=== PATIENT | female | born 1995 | race Caucasian/White ===

== ENCOUNTER 2017-03-20 06:26 | Day surgery (SDC) | payer BC ==
[2017-03-18 15:57] VITALS: BMI 46.9
[~2017-03-20 06:26] MED LIST: DEXAMETHASONE SOD PHOSPHATE 10 MG/ML 1 ML VIAL IV ONE; DEXAMETHASONE SOD PHOSPHATE 4 MG/ML 1 ML VIAL IV ONE; FAMOTIDINE 20 MG/2 ML VIAL IV ONE; HYDROmorphone 0.5 MG/0.5 ML SYRINGE IVP PRN; LACTATED RINGERS 1,000 ML IV SCH; LIDOCAINE 1% 20 ML VIAL (10MG/ML) FOR IV START INTRADERMA PRN; MIDAZOLAM 2 MG/2 ML VIAL IV PRN; ONDANSETRON 4 MG/2 ML VIAL IVP ONE; Pre Op ABX Message 1 EACH MISC MISCELLANE ONE; SCOPOLAMINE 1.5MG/72HR PATCH TRANSDERM ONE
[2017-03-20 06:58] VITALS: TEMP 97
[2017-03-20] MEDS ORDERED: PROPOFOL 10 MG/ML 20 ML VIAL IV ONE (07:24)
[2017-03-20] MEDS ORDERED: MIDAZOLAM 2 MG/2 ML VIAL ONE (07:24)
[2017-03-20] MEDS ORDERED: fentaNYL (PF) 50 MCG/ML 2 ML AMP ONE (07:24)
[2017-03-20] MEDS ORDERED: DEXAMETHASONE SOD PHOS (MDV) 100 MG/10 ML VIAL ONE (07:24)
[2017-03-20] MEDS ORDERED: SUCCINYLCHOLINE CHLORIDE 100 MG/5 ML SYR IV ONE (07:24)
--- NOTE | 2017-03-20 08:28 | P.OP ---
Date of Procedure: 03/20/17 Preoperative Diagnosis: Chronic tonsillitis Postoperative Diagnosis: Same Procedure(s) Performed: Adenotonsillectomy Anesthesia: JESSICA Surgeon: Sunny Alamo Estimated Blood Loss (ml): 5 Pathology: other (Bilateral tonsils) Condition: stable Disposition: PACU Indications for Procedure: This is a 22-year-old white female whose had difficulties with chronic and recurrent tonsillitis requiring numerous antibiotics. Operative Findings: Tonsils +3 bilaterally, adenoids mildly enlarged Description of Procedure: The patient in the operative suite and placed in supine position. Patient underwent induction of general anesthesia with oral endotracheal intubation without difficulty. The patient was prepped and draped in usual aseptic fashion. The McIvor mouth gag was placed. The soft palate was palpated and no submucous cleft was noted. A nonlatex catheter was placed through the right nasal cavity and pulled through the oropharynx for soft palate retraction. Nasopharynx examined mirror exam the adenoids were removed with suction cautery/ ablated. Good hemostasis was noted and the catheter was removed. Left tonsil was grasped with a curved Allis clamp and dissected from the tonsillar fossa in a superior to inferior direction using both blunt and electrocautery dissection the tonsil was removed. Once tonsils removed hemostasis gained with suction cautery. Once stasis was gained attention was turned to the right where the right tonsil was removed exactly as the left had been. Once this tonsils removed hemostasis was gained with suction cautery and once hemostasis was obtained and remained good in both tonsillar fossa the patient suctioned in oral gastric fashion the McIvor mouth gag was removed. The patient was then allowed to emerge from general anesthesia having tolerated procedure well was extended operating suite and transferred postoperative recovery area in satisfactory condition.
[2017-03-20] MEDS ORDERED: HYDROmorphone 1 MG/ML 1 ML SYRINGE IVP ONE ×2 (08:44→09:00)
[2017-03-20] MEDS ORDERED: PROMETHAZINE INJ 25 MG/ML 1 ML VIAL IVPB ONE (09:38)
[2017-03-20] MEDS ORDERED: HYDROcodone/APAP 5-325MG 1 EACH TAB PO ONE (10:58)
[2017-03-20 13:02] VITALS: BP 112/77; PULSE 89; RESP 18
== END 2017-03-20 13:02 | disposition home or self-care (01) ==
LOC: OR 06:26
PROVIDERS: ATTEND Otolaryngology
DX: J35.01 Chronic tonsillitis (principal); K21.9 Gastro-esophageal reflux disease without esophagitis; F32.9 Major depressive disorder, single episode, unspecified; Z88.0 Allergy status to penicillin; Z88.2 Allergy status to sulfonamides; Z91.040 Latex allergy status; Z88.1 Allergy status to other antibiotic agents; Z91.011 Allergy to milk products; Z91.09 Other allergy status, other than to drugs and biological substances; Z79.3 Long term (current) use of hormonal contraceptives; Z79.899 Other long term (current) drug therapy; Z83.3 Family history of diabetes mellitus; Z82.3 Family history of stroke
CPT/HCPCS: 42821; 81025; 88304; J2250; J1100 ×2; J2550; J2405; J3010; J1170; J0330; J2704

== ENCOUNTER 2018-04-22 11:03 | Day surgery (SDC) | payer BC ==
[2018-04-21 09:55] VITALS: BMI 50.5
--- NOTE | 2018-04-22 09:10 | P.GSHP ---
History of Present Illness H&P Date: 04/22/18 CHIEF COMPLAINT: Cholecystitis HISTORY OF PRESENT ILLNESS: The patient is a 23-year-old female who presents with history of epigastric including right upper quadrant abdominal pain. She underwent diagnostic studies for the gallbladder. Separately her clinical picture was consistent with cholecystitis. Now she presents for surgical intervention. PAST MEDICAL HISTORY: Please see list PAST SURGICAL HISTORY: Please see list MEDICATIONS: Please see list ALLERGIES: Denies. SOCIAL HISTORY: No illicit drug use or recent tobacco use FAMILY HISTORY: Pertinent for gallbladder disease REVIEW OF ORGAN SYSTEMS: CONSTITUTIONAL: No reports of fevers or chills. HEENT: Denies any troubles with the vision or hearing. ENDOCRINE: No reports of hypothyroidism. No diabetes. RESPIRATORY: No recent pneumonias. CARDIOVASCULAR: Denies chest pain or palpitations GI: No blood in stools or constipation. MUSCULOSKELETAL: Has occasional joint pain including back pain. NEURO: No seizure disorders or headaches. No recent stroke. PSYCH: No depression or suicidal ideation. HEMATOLOGIC: No personal or family history of DVTs or pulmonary emboli. PHYSICAL EXAM: VITAL SIGNS: Afebrile vital signs stable GENERAL: Well-developed pleasant in no acute distress. HEENT: No scleral icterus. Extraocular movements grossly intact. Moist buccal mucosa. NECK: Supple without lymphadenopathy. CHEST: Unlabored respirations. Equal bilateral excursions. CARDIOVASCULAR: Regular rate regular rhythm rhythm. Distal 2+ pulses. ABDOMEN: Soft, nondistended. Tender along the epigastrium and right upper quadrant. MUSCULOSKELETAL: No clubbing, cyanosis, or edema. NEURO : No focal or lateralizing signs. Cranial nerves II-12 within normal limits. PSYCH: Alert and oriented to person, place and time. SKIN: Well perfused. Good skin turgor. ASSESSMENT: 1. Epigastric and right upper quadrant abdominal pain 2. Chronic cholecystitis PLAN: 1. Will need a robotic cholecystectomy possible open. Benefits and risks were described. 2. Heparin for DVT prophylaxis 5000 units. 3. Antibiotic prophylaxis. Past Medical History Past Medical History: GERD/Reflux Additional Past Medical History / Comment(s): Arthritis, unsure which type. Frequent strep throat. Maternal family history of Factor 2 Gene Mutation. History of Any Multi-Drug Resistant Organisms: None Reported Past Surgical History: Tonsillectomy Additional Past Surgical History / Comment(s): [place] teeth extracted. Past Anesthesia/Blood Transfusion Reactions: Family History of Problems w/ Anesthesia Additional Past Anesthesia/Blood Transfusion Reaction / Comment(s): Maternal grandmother, Mom PONV. Additional Psychological History / Comment(s): OCD. Smoking Status: Never smoker Past Alcohol Use History: Rare Past Drug Use History: Marijuana Additional Drug Use History / Comment(s): Uses Marijuana 1-2 monthly. Patient aware not to use 24 hrs prior to procedure. - Past Family History Mother Family Medical History: No Reported History Medications and Allergies Home Medications Medication Instructions Recorded Confirmed Type Escitalopram [Lexapro] 10 mg PO HS 04/07/15 04/21/18 History Cetirizine HCl [Zyrtec] 10 mg PO HS 03/18/17 04/21/18 History Control Pill 1 tab PO HS 04/21/18 04/21/18 History Allergies Allergy/AdvReac Type Severity Reaction Status Date / Time clindamycin Allergy Rash/Hives Verified 04/21/18 09:42 latex Allergy Itching, Verified 04/21/18 09:42 rash Penicillins Allergy Rash/Hives Verified 04/21/18 09:42 Sulfa (Sulfonamide Allergy Rash/Hives, Verified 04/21/18 09:42 Antibiotics) swelling
[~2018-04-22 11:03] MED LIST changes: +ACETAMINOPHEN IV (For NPO) 1,000 MG in EMPTY BAG 1 BAG IVPB ONE; -DEXAMETHASONE SOD PHOSPHATE 4 MG/ML 1 ML VIAL IV ONE; -FAMOTIDINE 20 MG/2 ML VIAL IV ONE; +HEPARIN SODIUM,PORCINE 5,000 UNIT/ML 1 ML VIAL SQ ONE; -HYDROmorphone 0.5 MG/0.5 ML SYRINGE IVP PRN; +INDOCYANINE GREEN 25 MG VIAL IV STA; +MIDAZOLAM (PF) 2 MG/2 ML VIAL IV PRN; -MIDAZOLAM 2 MG/2 ML VIAL IV PRN; -Pre Op ABX Message 1 EACH MISC MISCELLANE ONE
[2018-04-22 12:19] LABS: ALT 24 U/L (9-52); AST 23 U/L (14-36); Albumin 4.1 g/dL (3.5-5.0); Alkaline Phosphatase 62 U/L (38-126); Anion Gap 7 mmol/L; Basophils # (A) 0.1 k/uL (0-0.2); Basophils % (A) 1 %; Blood Urea Nitrogen 12 mg/dL (7-17); Calcium 9.6 mg/dL (8.4-10.2); Carbon Dioxide 27 mmol/L (22-30); Chloride 105 mmol/L (98-107); Eosinophils # (A) 0.3 k/uL (0-0.7); Eosinophils % (A) 4 %; Glucose 88 mg/dL (74-99); HCT 38.2 % (34.0-46.0); HGB 12.5 gm/dL (11.4-16.0); Lymphocytes # (A) 2.5 k/uL (1.0-4.8); Lymphocytes % (A) 32 %; MCH 27.3 pg (25.0-35.0); MCHC 32.7 g/dL (31.0-37.0); MCV 83.6 fL (80.0-100.0); Monocytes # (A) 0.4 k/uL (0-1.0); Monocytes % (A) 5 %; Neutrophils # (A) 4.4 k/uL (1.3-7.7); Neutrophils % (A) 56 %; Platelet Count 241 k/uL (150-450); Potassium 4.5 mmol/L (3.5-5.1); RBC 4.58 m/uL (3.80-5.40); RDW 13.3 % (11.5-15.5); Sodium 139 mmol/L (137-145); Total Bilirubin 0.4 mg/dL (0.2-1.3); Total Protein 6.9 g/dL (6.3-8.2); WBC 7.9 k/uL (3.8-10.6)
[2018-04-22] MEDS ORDERED: NEOSTIGMINE 1 MG/ML 10 ML VIAL ONE (16:27)
[2018-04-22] MEDS ORDERED: MIDAZOLAM 2 MG/2 ML VIAL ONE (16:27)
[2018-04-22] MEDS ORDERED: fentaNYL (PF) 50 MCG/ML 2 ML AMP ONE (16:27)
[2018-04-22] MEDS ORDERED: PROPOFOL 10 MG/ML 20 ML VIAL IV ONE (16:27)
[2018-04-22] MEDS ORDERED: SUCCINYLCHOLINE CHLORIDE 100 MG/5 ML SYR IV ONE (16:27)
[2018-04-22] MEDS ORDERED: GLYCOPYRROLATE 0.2 MG/ML 2 ML VIAL ONE (16:27)
[2018-04-22] MEDS ORDERED: ROCURONIUM BROMIDE 10 MG/ML 10 ML VIAL IV ONE (16:27)
[2018-04-22] MEDS ORDERED: ACETAMINOPHEN IV (For NPO) 1,000 MG/100 ML VIAL ONE (16:27)
[2018-04-22] MEDS ORDERED: HYDROmorphone (PF) 1 MG/ML ONE (16:27)
[2018-04-22] MEDS ORDERED: LIDOCAINE 1% INJ 10MG/ML (20 ML MDV) ONE (16:27)
[2018-04-22] MEDS ORDERED: BUPIVACAIN-EPI 0.25%-1:200,000 30 ML VIAL SQ ONE (16:55)
[2018-04-22] MEDS ORDERED: LACTATED RINGERS 1,000 ML IV ONE (17:41)
[2018-04-22 18:10] VITALS: TEMP 99.1
[2018-04-22] MEDS: HYDROmorphone 0.5 MG/0.5 ML SYRINGE IVP PRN ×2 (18:10→18:35)
--- NOTE | 2018-04-22 18:15 | P.OP ---
Date of Procedure: 04/22/18 Description of Procedure: SURGEON: MARIA ISABEL BLANCAS MD PREOPERATIVE DIAGNOSES: 1. Right upper quadrant abdominal pain 2. Chronic cholecystitis 3. Morbid obesity due to excess calories, BMI 50.5 4. Depressive disorder 5. Family history of gallbladder disease POSTOPERATIVE DIAGNOSES: 1. Right upper quadrant abdominal pain 2. Chronic cholecystitis 3. Morbid obesity due to excess calories, BMI 50.5 4. Depressive disorder 5. Family history of gallbladder disease OPERATION: Robotic-assisted da Luis Daniel Xi laparoscopic cholecystectomy, multiport with FIREFLY ESTIMATED BLOOD LOSS: 5 mL. SPECIMENS REMOVED: Gallbladder. COMPLICATIONS: None. OPERATIVE FINDINGS: 1. Chronic cholecystitis with peritoneal adhesion INDICATIONS: The patient is a 23-year-old female who presents with cholelcystitis. Surgical intervention with a laparoscopic cholecystectomy was described at length including injury to the biliary tree, bleeding, infection, need for further surgery. Informed consent was obtained. Robotic assisted laparoscopic approach was described. Benefits and risks of the procedure including but not limited to bleeding, infection, injury to the biliary tree was described. Informed consent was obtained. DESCRIPTION OF PROCEDURE: Patient was brought to the operating room, placed in supine position. After general induction, the abdomen had been prepped and draped in standard sterile fashion. The robotic da Luis Daniel XI system was primed. After a timeout protocol was performed, the patient had been prepped and draped in standard sterile fashion. The patient was injected with indocyanine green. A 5 mm 0 degrees laparoscopic trocar entry was performed along the left upper quadrant. The abdomen insufflated to 15 mmHg pressure which was tolerated well. Diagnostic laparoscopy demonstrated no injury to bowel viscera or mesentery. The liver surface was unremarkable. Next, two 8 mm robotic ports were placed along the right upper abdomen. The camera 8-mm port was maintained along the epigastrium. Another 8 mm port was placed along the left upper abdominal wall after exchanging the 5 mm port. Please note that the ports were placed at least 10 to 15 cm away from the target anatomy of the gallbladder. The robot was docked along the left lateral abdomen. The patient was repositioned in reverse Trendelenburg position. Using a grasper for arm 3, a grasper for arm 4, including hook cautery for arm 1 , the robotic system was docked and primed as described. Instruments were interchanged by the accounts receivable assistant including hook cautery, Bovie cautery and clip appliers. I had sat at the console. The gallbladder fundus was retracted over the dome of the liver. Initial attention was brought to the infundibulum which was gently retracted in the inferior lateral approach. Using a grasper, the cystic duct including the cystic artery was carefully skeletonized. FIREFLY was used to identify the cystic artery and cystic structures. Large PLASTIC clips were used throughout the entire case. Using a clip nutrition educator 2 clips were placed proximally, and 1 clip was placed distally along the cystic duct and then cauterized with the cautery. Again care was taken to avoid any injury to the biliary tree as the common bile duct was clearly visualized during this portion of dissection. Next, the cystic artery was similarly clipped and cauterized. Electro-Bovie cautery was used to remove the gallbladder from the hepatic fossa. Hemostasis was checked and found to be adequate. The robot was undocked. I re-scrubbed into the case. Using a 10 mm Endo Catch bag via the left upper quadrant incision, the specimen was removed from the abdominal cavity. All pneumoperitoneum instruments were evacuated from the abdominal cavity. The incisions were reapproximated using 4-0 Monocryl in an interrupted subcuticular fashion. Fascial defects were less than 8 mm in size. Please note along the trocar sites, local anesthetic was placed as a field block prior to insertion of all instruments. Liquid glue was applied to the skin. At the end of the procedure needle, sponge, and instrument count had been verified correct by the manager surgical. The patient was transferred to postanesthesia care unit in stable condition. Intraoperative films were shared with the patient's family who were very pleased with the level of care. Console time 17 minutes Plan - Discharge Summary New Discharge Prescriptions: New HYDROcodone/APAP 5-325MG [[place] 5-325] 1 tab PO Q6HR PRN 3 Days #12 tab PRN Reason: Pain Ibuprofen [Motrin] 600 mg PO Q8HR PRN #30 tab PRN Reason: Pain No Action Escitalopram [Lexapro] 10 mg PO HS Cetirizine HCl [Zyrtec] 10 mg PO HS Control Pill 1 tab PO HS Discharge Medication List Escitalopram [Lexapro] 10 mg PO HS 04/07/15 [History] Cetirizine HCl [Zyrtec] 10 mg PO HS 03/18/17 [History] Control Pill 1 tab PO HS 04/21/18 [History] HYDROcodone/APAP 5-325MG [[place] 5-325] 1 tab PO Q6HR PRN 3 Days #12 tab [Rx] Ibuprofen [Motrin] 600 mg PO Q8HR PRN #30 tab 04/22/18 [Rx] Follow up Appointment(s)/Referral(s): Maria Isabel Blancas MD [STAFF PHYSICIAN] - 05/05/18 5:00 pm (Please call to confirm time) Patient Instructions/Handouts: *Surgery [facility] - (Anesthesia) Discharge Instructions Outpatient Surgery, Low Fat Diet (DC), Laparoscopic Cholecystectomy (DC) Activity/Diet/Wound Care/Special Instructions: May shower. No bathtub soaks. Low-fat diet in for 2 days. No lifting over 10 pounds 1 week. Discharge Disposition: HOME SELF-CARE
[2018-04-22 18:17] VITALS: RESP 18
[2018-04-22] MEDS ORDERED: KETOROLAC 30 MG/ML 1 ML VIAL IVP ONE (18:35)
[2018-04-22] MEDS ORDERED: ONDANSETRON 4 MG/2 ML VIAL IVP ONE (19:00)
[2018-04-22 19:11] VITALS: BP 147/78; PULSE 78
== END 2018-04-22 19:59 | disposition home or self-care (01) ==
LOC: OR 11:03
PROVIDERS: ATTEND Surgery Plastic and Reconstructive Surgery
DX: K81.1 Chronic cholecystitis (principal); K21.9 Gastro-esophageal reflux disease without esophagitis; M19.90 Unspecified osteoarthritis, unspecified site; F32.9 Major depressive disorder, single episode, unspecified; E66.01 Morbid (severe) obesity due to excess calories; Z68.43 Body mass index [BMI] 50.0-59.9, adult; Z83.79 Family history of other diseases of the digestive system; Z83.2 Family history of diseases of the blood and blood-forming organs and certain disorders involving the immune mechanism; Z79.3 Long term (current) use of hormonal contraceptives; Z79.899 Other long term (current) drug therapy; Z88.0 Allergy status to penicillin; Z88.2 Allergy status to sulfonamides; Z88.1 Allergy status to other antibiotic agents; Z91.040 Latex allergy status
CPT/HCPCS: 47563; S2900; 80053; 81025; 85025; 88304

== ENCOUNTER → 2019-08-22 | Outpatient (CLI) | payer BC | END | disposition home or self-care (01) | LOC: LABWHC1 11:36 | PROVIDERS: ATTEND Surgery Plastic and Reconstructive Surgery | DX: Z11.59 Encounter for screening for other viral diseases (principal) | CPT/HCPCS: 87635 ==

== ENCOUNTER 2019-08-25 10:05 | Day surgery (SDC) | payer BC ==
[2019-08-23 12:31] VITALS: BMI 54.0
--- NOTE | 2019-08-24 19:41 | P.GSHP ---
History of Present Illness H&P Date: 08/25/19 CHIEF COMPLAINT: Hematochezia HISTORY OF PRESENT ILLNESS: The patient is a 24-year-old female who presents with hematochezia. Lower endoscopy was offered for further evaluation and management. PAST MEDICAL HISTORY: Please see list. PAST SURGICAL HISTORY: Please see list. MEDICATIONS: Please see list. ALLERGIES: Please see list. SOCIAL HISTORY: No illicit drug use FAMILY HISTORY: No reports of Crohn disease or ulcerative colitis. REVIEW OF ORGAN SYSTEMS: CONSTITUTIONAL: No reports of fevers or chills. PHYSICAL EXAM: VITAL SIGNS: Stable GENERAL: Well-developed pleasant in no acute distress. HEENT: No scleral icterus. Extraocular movements grossly intact. Moist buccal mucosa. NECK: Supple without lymphadenopathy. CHEST: Unlabored respirations. Equal bilateral excursions. CARDIOVASCULAR: Regular rate and rhythm. Distal 2+ pulses. ABDOMEN: Soft, nontender, nondistended. MUSCULOSKELETAL: No clubbing, cyanosis, or edema. ASSESSMENT: 1. Hematochezia PLAN: 1. Recommend proceeding with a lower endoscopy Past Medical History Past Medical History: GERD/Reflux Additional Past Medical History / Comment(s): Arthritis, unsure which type. Frequent strep throat. Maternal family history of Factor 2 Gene Mutation. IBS ISSUES History of Any Multi-Drug Resistant Organisms: None Reported Past Surgical History: Cholecystectomy, Tonsillectomy Additional Past Surgical History / Comment(s): [place] teeth extracted. Past Anesthesia/Blood Transfusion Reactions: Family History of Problems w/ Anesthesia Additional Past Anesthesia/Blood Transfusion Reaction / Comment(s): Maternal grandmother, Mom PONV. Smoking Status: Never smoker - Past Family History Mother Family Medical History: No Reported History Medications and Allergies Home Medications Medication Instructions Recorded Confirmed Type Escitalopram [Lexapro] 10 mg PO HS 04/07/15 08/23/19 History Cetirizine HCl [Zyrtec] 10 mg PO HS 03/18/17 08/23/19 History Eluxadoline [Viberzi] 200 mg PO HS 08/23/19 08/23/19 History Norethindrone-E.estradiol-Iron 1 each PO HS 08/23/19 08/23/19 History [Junel Fe 1 mg-20 Mcg Tablet] Allergies Allergy/AdvReac Type Severity Reaction Status Date / Time clindamycin Allergy Rash/Hives Verified 08/23/19 12:09 latex Allergy Itching, Verified 08/23/19 12:09 rash Penicillins Allergy Rash/Hives Verified 08/23/19 12:09 Sulfa (Sulfonamide Allergy Rash/Hives, Verified 08/23/19 12:09 Antibiotics) swelling
[~2019-08-25 10:05] MED LIST changes: -ACETAMINOPHEN IV (For NPO) 1,000 MG in EMPTY BAG 1 BAG IVPB ONE; -DEXAMETHASONE SOD PHOSPHATE 10 MG/ML 1 ML VIAL IV ONE; -HEPARIN SODIUM,PORCINE 5,000 UNIT/ML 1 ML VIAL SQ ONE; -INDOCYANINE GREEN 25 MG VIAL IV STA; -LIDOCAINE 1% 20 ML VIAL (10MG/ML) FOR IV START INTRADERMA PRN; -MIDAZOLAM (PF) 2 MG/2 ML VIAL IV PRN; -ONDANSETRON 4 MG/2 ML VIAL IVP ONE; -SCOPOLAMINE 1.5MG/72HR PATCH TRANSDERM ONE
[2019-08-25 10:28] VITALS: RESP 18; TEMP 97.8
[2019-08-25] MEDS ORDERED: LACTATED RINGERS 1,000 ML IV ONE (10:29)
[2019-08-25] MEDS ORDERED: LIDOCAINE 1% (10MG/ML) FOR IV START INTRADERMA ONE (10:33)
[2019-08-25] MEDS ORDERED: fentaNYL (PF) 50 MCG/ML 2 ML AMP ONE (11:28)
[2019-08-25] MEDS ORDERED: PROPOFOL 10 MG/ML 20 ML VIAL IV ONE (11:28)
[2019-08-25] MEDS ORDERED: MIDAZOLAM 2 MG/2 ML VIAL ONE (11:28)
--- NOTE | 2019-08-25 11:52 | P.HPADDEND ---
H&P Addendum H&P Addendum Date: 08/25/19 Patient reports change in bowel habits including bloody stools long-standing. We'll proceed with colonoscopy
--- NOTE | 2019-08-25 11:53 | P.PCN ---
Date of Procedure: 08/25/19 Description of Procedure: PREOPERATIVE DIAGNOSIS: Change in bowel habits Hematochezia POSTOPERATIVE DIAGNOSIS: Change in bowel habits Hematochezia OPERATION: Colonoscopy to the ileocecal valve and appendiceal orifice. SURGEON: Maria Isabel Blancas MD. ANESTHESIA: MAC. INDICATIONS: The patient is a 24-year-old female who presents with change in bowel habits and hematochezia. Benefits and risks were described and informed consent was obtained. DESCRIPTION OF PROCEDURE: The patient had undergone Suprep. He had been brought into the operating room and laid in the left lateral decubitus position. After adequate intravenous sedation, the rectum was examined with 2% lidocaine jelly. No external hemor rhoids were encountered. The rectal tone was within normal limits. No lesions were palpated in the rectal vault. An Olympus colonoscope was advanced until the ileocecal valve and appendiceal orifice were clearly viewed. The prep was excellent with clear visualization of the mucosal folds. The scope was removed with visualization of each mucosal fold. No scattered diverticulosis was encountered. No colonic polyps were found. No evidence of focal colitis was found. Retroflexion of the scope demonstrated grade 1 internal hemorrhoids without active bleeding or inflammation. The colon was desufflated. The patient had tolerated the procedure well. Withdrawal time was over 6 minutes. FINDINGS: Aronchick preparation quality scale 1 (1-5) Internal hemorrhoids, grade 1 No external prolapsed hemorrhoids. No arteriovenous malformations. No adenomatous polyps. No focal colitis. RECOMMENDATIONS: Lower endoscopy as needed Plan - Discharge Summary Discharge Rx Participant: No New Discharge Prescriptions: Continue Escitalopram [Lexapro] 10 mg PO HS Cetirizine HCl [Zyrtec] 10 mg PO HS Norethindrone-E.estradiol-Iron [Junel Fe 1 mg-20 Mcg Tablet] 1 each PO HS Eluxadoline [Viberzi] 200 mg PO HS Discharge Medication List Escitalopram [Lexapro] 10 mg PO HS 04/07/15 [History] Cetirizine HCl [Zyrtec] 10 mg PO HS 03/18/17 [History] Eluxadoline [Viberzi] 200 mg PO HS 08/23/19 [History] Norethindrone-E.estradiol-Iron [Junel Fe 1 mg-20 Mcg Tablet] 1 each PO HS 08/23/19 [History] Follow up Appointment(s)/Referral(s): Maria Isabel Blancas MD [STAFF PHYSICIAN] - 09/20/19 Patient Instructions/Handouts: *Sur[facility] - (Anesthesia) Endoscopy Discharge Instructions, Colonoscopy (DC) Discharge Disposition: HOME SELF-CARE
[2019-08-25 11:57] VITALS: BP 106/70
[2019-08-25 12:07] VITALS: PULSE 80
== END 2019-08-25 12:31 | disposition home or self-care (01) ==
LOC: ORWHC2ENDO 10:05
PROVIDERS: ATTEND Surgery Plastic and Reconstructive Surgery
DX: K64.0 First degree hemorrhoids (principal); K58.9 Irritable bowel syndrome, unspecified; F42.9 Obsessive-compulsive disorder, unspecified; K21.9 Gastro-esophageal reflux disease without esophagitis; E66.01 Morbid (severe) obesity due to excess calories; Z79.3 Long term (current) use of hormonal contraceptives; Z79.899 Other long term (current) drug therapy; Z88.0 Allergy status to penicillin; Z91.040 Latex allergy status; Z88.2 Allergy status to sulfonamides; Z88.1 Allergy status to other antibiotic agents; Z90.49 Acquired absence of other specified parts of digestive tract; Z91.048 Other nonmedicinal substance allergy status; Z68.43 Body mass index [BMI] 50.0-59.9, adult
CPT/HCPCS: 81025; 45378; J2250; J3010; J2704

== ENCOUNTER 2019-10-05 08:44 | Day surgery (SDC) | payer BC ==
[2019-10-03 15:17] VITALS: BMI 56.7
[2019-10-05 09:09] VITALS: RESP 16; TEMP 97.7
[2019-10-05] MEDS ORDERED: LIDOCAINE 1% (10MG/ML) FOR IV START INTRADERMA ONE (09:14)
[2019-10-05] MEDS ORDERED: PROPOFOL 10 MG/ML 20 ML VIAL IV ONE (09:46)
[2019-10-05] MEDS ORDERED: LIDOCAINE 1% INJ 10MG/ML (20 ML MDV) ONE (09:46)
[2019-10-05 10:09] VITALS: BP 135/71; PULSE 86
--- NOTE | 2019-10-05 10:09 | P.GSHP ---
History of Present Illness H&P Date: 10/05/19 CHIEF COMPLAINT: GERD HISTORY OF PRESENT ILLNESS: The patient is a 24-year-old female who presents reports gastroesophageal reflux disease. Upper endoscopy was offered for further evaluation and management. PAST MEDICAL HISTORY: Please see list. PAST SURGICAL HISTORY: Please see list. MEDICATIONS: Please see list. ALLERGIES: Please see list. SOCIAL HISTORY: No illicit drug use FAMILY HISTORY: No reports of Crohn disease or ulcerative colitis. REVIEW OF ORGAN SYSTEMS: CONSTITUTIONAL: No reports of fevers or chills. GI: Denies any blood in stools or constipation. PHYSICAL EXAM: VITAL SIGNS: Stable GENERAL: Well-developed and pleasant in no acute distress. HEENT: No scleral icterus. Extraocular movements grossly intact. Moist buccal mucosa. NECK: Supple without lymphadenopathy. CHEST: Unlabored respirations. Equal bilateral excursions. CARDIOVASCULAR: Regular rate and rhythm. Distal 2+ pulses. ABDOMEN: Soft, nondistended. MUSCULOSKELETAL: No clubbing, cyanosis, or edema. ASSESSMENT: 1. Gastroesophageal reflux disease PLAN: 1. Recommend proceeding with an upper endoscopy Past Medical History Past Medical History: GERD/Reflux Additional Past Medical History / Comment(s): Arthritis. Maternal family history of Factor 2 Gene Mutation. History of Any Multi-Drug Resistant Organisms: None Reported Past Surgical History: Cholecystectomy, Tonsillectomy Additional Past Surgical History / Comment(s): [place] teeth extracted, colonoscopy Past Anesthesia/Blood Transfusion Reactions: Family History of Problems w/ Anesthesia Additional Past Anesthesia/Blood Transfusion Reaction / Comment(s): Maternal grandmother, Mom PONV. Smoking Status: Never smoker - Past Family History Mother Family Medical History: No Reported History Medications and Allergies Home Medications Medication Instructions Recorded Confirmed Type Escitalopram [Lexapro] 10 mg PO HS 04/07/15 10/05/19 History Cetirizine HCl [Zyrtec] 10 mg PO HS 03/18/17 10/05/19 History Eluxadoline [Viberzi] 200 mg PO HS 08/23/19 10/05/19 History Norethindrone-E.estradiol-Iron 1 each PO HS 08/23/19 10/05/19 History [Junel Fe 1 mg-20 Mcg Tablet] Allergies Allergy/AdvReac Type Severity Reaction Status Date / Time clindamycin Allergy Rash/Hives Verified 10/05/19 09:04 latex Allergy Itching, Verified 10/05/19 09:04 rash Penicillins Allergy Rash/Hives Verified 10/05/19 09:04 Sulfa (Sulfonamide Allergy Rash/Hives, Verified 10/05/19 09:04 Antibiotics) swelling Surgical - Exam Vital Signs Temp Pulse Resp BP Pulse Ox 97.7 F 105 H 16 129/63 97 10/05/19 09:00 10/05/19 09:00 10/05/19 09:00 10/05/19 09:00 10/05/19 09:00
--- NOTE | 2019-10-05 10:10 | P.PCN ---
Date of Procedure: 10/05/19 Description of Procedure: PREOPERATIVE DIAGNOSIS: Gastroesophageal reflux disease. Morbid obesity. POSTOPERATIVE DIAGNOSIS: Morbid obesity. Gastric ulcer Gastroesophageal reflux disease. Diaphragmatic hiatal hernia OPERATION: Esophagogastroduodenoscopy with biopsies along antrum. SURGEON: Maria Isabel Blancas MD ANESTHESIA: MAC. INDICATIONS: The patient is a 24-year-old female who presents with a history of reflux disease. Benefits and risks of the procedure were described. Informed consent was obtained. DESCRIPTION: The patient was brought into the endoscopy suite and laid in the left lateral decubitus position. An Olympus gastroscope was passed along the posterior oropharynx down to the distal esophagus where the squamocolumnar junction was encountered at 40 cm from the incisors. The stomach was entered and no bile reflux was found. Additional findings are listed below. Biopsies with cold forceps were obtained of the antrum. The first through third portion of the duodenum was examined and unremarkable. Retroflexion of the scope confirmed Hill grade 2 lower esophageal valve. The squamocolumnar junction demonstrated LA grade B erosive esophagitis. The stomach was desufflated. The patient tolerated the procedure well. FINDINGS: Squamocolumnar junction 38 cm from the incisors. Diaphragmatic hiatus at 40 cm. Hiatal hernia, 2 cm Hill grade 2 lower esophageal valve. LA grade B erosive esophagitis. No active duodenitis. Small superficial gastric ulcer along antrum, 3 mm RECOMMENDATIONS: Upper endoscopy as needed. Plan - Discharge Summary Discharge Rx Participant: No New Discharge Prescriptions: Continue Escitalopram [Lexapro] 10 mg PO HS Cetirizine HCl [Zyrtec] 10 mg PO HS Norethindrone-E.estradiol-Iron [Junel Fe 1 mg-20 Mcg Tablet] 1 each PO HS Eluxadoline [Viberzi] 200 mg PO HS Discharge Medication List Escitalopram [Lexapro] 10 mg PO HS 04/07/15 [History] Cetirizine HCl [Zyrtec] 10 mg PO HS 03/18/17 [History] Eluxadoline [Viberzi] 200 mg PO HS 08/23/19 [History] Norethindrone-E.estradiol-Iron [Junel Fe 1 mg-20 Mcg Tablet] 1 each PO HS 08/23/19 [History] Follow up Appointment(s)/Referral(s): Maria Isabel Blancas MD [STAFF PHYSICIAN] - 10/18/19 Patient Instructions/Handouts: Peptic Ulcer (DC), Diet for Stomach Ulcers and Gastritis (ED) Discharge Disposition: HOME SELF-CARE
== END 2019-10-05 11:03 | disposition home or self-care (01) ==
LOC: ORWHC2ENDO 08:44
PROVIDERS: ATTEND Surgery Plastic and Reconstructive Surgery
DX: K25.9 Gastric ulcer, unspecified as acute or chronic, without hemorrhage or perforation (principal); K44.9 Diaphragmatic hernia without obstruction or gangrene; K21.0 Gastro-esophageal reflux disease with esophagitis; K22.10 Ulcer of esophagus without bleeding; E66.01 Morbid (severe) obesity due to excess calories; Z79.899 Other long term (current) drug therapy; Z88.0 Allergy status to penicillin; Z88.2 Allergy status to sulfonamides; Z88.1 Allergy status to other antibiotic agents; Z91.040 Latex allergy status; Z91.048 Other nonmedicinal substance allergy status; Z68.43 Body mass index [BMI] 50.0-59.9, adult; M19.90 Unspecified osteoarthritis, unspecified site; Z90.49 Acquired absence of other specified parts of digestive tract; Z90.89 Acquired absence of other organs; Z98.818 Other dental procedure status
CPT/HCPCS: 81025; 88305; 43239; J2001; J2704

== ENCOUNTER → 2019-10-25 | Outpatient (CLI) | payer BC ==
--- NOTE | 2019-10-25 20:19 | CT ---
EXAMINATION TYPE: CT abdomen pelvis wo con DATE OF EXAM: 10/25/2019 COMPARISON: 04/07/2015 HISTORY: Right side flank pain, hematuria CT DLP: 1178 mGycm Automated exposure control for dose reduction was used. TECHNIQUE: Helical acquisition of images was performed from the lung bases through the pelvis. FINDINGS: LUNG BASES: No significant abnormality is appreciated. LIVER/GB: No significant abnormality is appreciated. PANCREAS: No significant abnormality is seen. SPLEEN: No significant abnormality is seen. ADRENALS: No significant abnormality is seen. KIDNEYS: No significant abnormality is seen. URINARY BLADDER: No significant abnormality is seen. ADENOPATHY: None visualized. OSSEOUS STRUCTURES: Mild hypertrophic changes of the spine BOWEL: Bowel gas pattern nonspecific with no obstruction. Appendix normal. OTHER: Fat-containing anterior abdominal wall hernia. There again bilateral ovarian masses which contain fat. The lesion on the left which is the larger of the 2 also contains a calcification. Findings likely related to dermoid or teratoma. Maximal dimensi on of 4.7 cm. Findings also noted on prior exam. IMPRESSION: 1. Stable bilateral ovarian masses likely representing dermoid or teratoma. Correlate clinically if t his is the location pain. 2. No hydronephrosis or nephrolithiasis.
== END | disposition home or self-care (01) ==
LOC: RADCTMAIN 19:11
PROVIDERS: ATTEND Surgery Plastic and Reconstructive Surgery
DX: N83.8 Other noninflammatory disorders of ovary, fallopian tube and broad ligament (principal)
CPT/HCPCS: 74176

== ENCOUNTER → 2019-12-21 | Outpatient (CLI) | payer BC ==
[2019-12-21 16:29] VITALS: BP 137/92; PULSE 102; RESP 18; TEMP 98; BMI 56.0
--- NOTE | 2019-12-21 17:27 | P.HPBAR ---
Bariatric H&P - History & Physicial H&P Date: 12/21/19 History & Physicial: Visit/CC: initial visit Patient initial contact: Initial weight: Initial weight in pounds: Height: 5 ft 5 in Initial BMI: Last weight: Current weight: 152.815 kg Current weight in pounds: 336.90 Current BMI: 56.0 [place] body weight (based on NIH guidelines): 56.699 kg Excess body weight loss: The patient is a 24 year-old F who presents for Bariatric Assessment. Recommend get copies of CT scan and report to terminal clerk. Robotic oopherectomy. DATE OF SERVICE: 12/21/19 REASON FOR CONSULTATION: Initial bariatric evaluation. HISTORY OF PRESENT ILLNESS: Olesya Varela is a 24-year-old female who comes with lifelong morbid obesity. She comes in looking into the sleeve gastrectomy. Her gallbladder is out. She takes Omeprazole as needed for gastroesophageal reflux disease. She has a family with obesity. She does have family support. No reports of active chest pain. No reports of active nausea or vomiting. She has undergone medical supervised weight loss. She has osteoarthritis of the knees, hips, and back. Now she is looking into permanent options for weight loss. She has history of change in bowel habits with colonoscopy completed. At height of 5 feet 5 inches, her ideal body weight is 149 pounds. She comes in 336 pounds. Her body mass index is 56.1. She is 187 pounds overweight. PAST MEDICAL HISTORY: 1. Morbid obesity due to excess calories 2. Body mass index of 56.1 3. Osteoarthritis of the knees. 4. Osteoarthritis of the lower back. 5. Gastroesophageal reflux disease 6. Depressive disorder PAST SURGICAL HISTORY: 1. Cholecystectomy 2. Tonsillectomy 3. Colonoscopy 4. EGD HOME MEDICATIONS: Home Medications Medication Instructions Recorded Confirmed Cetirizine HCl [Zyrtec] 10 mg PO HS 03/18/17 01/25/20 Norethindrone-E.estradiol-Iron 1 each PO HS 08/23/19 01/25/20 [Junel Fe 1 mg-20 Mcg Tablet] FLUoxetine HCL [PROzac] 20 mg PO DAILY 12/21/19 01/25/20 Previous Rx's Medication Instructions Recorded Omeprazole [PriLOSEC] 40 mg PO DAILY #90 cap 07/14/20 ALLERGIES: Allergies Allergy/AdvReac Type Severity Reaction Status Date / Time clindamycin Allergy Rash/Hives Verified 01/25/20 13:35 latex Allergy Itching, Verified 01/25/20 13:35 rash Penicillins Allergy Rash/Hives Verified 01/25/20 13:35 Sulfa (Sulfonamide Allergy Rash/Hives, Verified 01/25/20 13:35 Antibiotics) swelling SOCIAL HISTORY: Marijuana use. FAMILY HISTORY: No family history of ulcerative colitis disease or Crohn's disease. Family history of morbid obesity. History of Factor 2 gene mutation. REVIEW OF ORGAN SYSTEMS: CONSTITUTIONAL: At height of 5 feet 5 inches, her ideal body weight is 149 pounds. She comes in 336 pounds. Her body mass index is 56.1. She is 187 pounds overweight. HEENT: Denies any active troubles hearing. Wears glasses. ENDOCRINE: No diabetes. No hypothyroidism. CARDIOVASCULAR: No past reports of palpitations or heart attacks or chest pain. RESPIRATORY: No daytime somnolence. No asthma. GASTROINTESTINAL: Denies any bright red blood per rectum. Has diarrhea. No constipation. MUSCULOSKELETAL: Has lower back pain and joint pain. Has osteoarthritis of the knees. NEURO: No headaches. No seizure disorders. PSYCH: Has depression. No suicidal ideation. RHEUMATOLOGIC: No lupus. No rheumatoid arthritis. HEMATOLOGIC: Denies any abnormal bleeding or bruising. No personal history of DVTs. SKIN: No rash. No skin cancer. PHYSICAL EXAM: VITAL SIGNS: Height 5 foot 5 inches, weight 336 pounds. BMI 56.1 Vital Signs Temp 98 F 12/21/19 16:21 Pulse 102 H 12/21/19 16:21 Resp 18 12/21/19 16:21 BP 137/92 12/21/19 16:21 Pulse Ox GENERAL: Well-developed in no acute distress. HEENT: No scleral icterus. Extraocular movements grossly intact. Hears conversational speech. No nasal drainage. NECK: Supple without lymphadenopathy. CHEST: Nonlabored respirations with equal bilateral excursions. CARDIOVASCULAR: Tachycardic. Distal 2+ pulses. ABDOMEN: Obese, soft, nontender, nondistended. MUSCULOSKELETAL: No clubbing, cyanosis. NEURO: No focal or lateralizing signs. Cranial nerves 2 through 12 grossly within normal limits. PSYCH: Appropriate affect. Alert and oriented to person, place and time. SKIN: Good skin turgor. Well perfused. STUDIES: CT of the abdomen and pelvis independently reviewed demonstrates small umbilical hernia. Appendix unremarkable. 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 REPORT: CT of the abdomen and pelvis report confirms left ovarian tumor dermoid type, 4.7 cm. EGD FINDINGS: Squamocolumnar junction 38 cm from the incisors. Diaphragmatic hiatus at 40 cm. Hiatal hernia, 2 cm Hill grade 2 lower esophageal valve. LA grade B erosive esophagitis. No active duodenitis. Small superficial gastric ulcer along antrum, 3 mm COLONOSCOPY FINDINGS: Aronchick preparation quality scale 1 (1-5) Internal hemorrhoids, grade 1 No external prolapsed hemorrhoids. No arteriovenous malformations. No adenomatous polyps. No focal colitis. Final Pathologic Diagnosis GASTRIC ANTRAL MUCOSA, BIOPSY: Reactive gastropathy (acute gastritis). No helicobacter type micro organisms identified. ASSESSMENT: 1. Morbid obesity due to excess calories 2. Body mass index of 56.1 3. Osteoarthritis of the knees. 4. Osteoarthritis of the lower back. 5. Gastroesophageal reflux disease 6. Depressive disorder PLAN: 1. Surgical options including a band, gastric bypass, sleeve gastrectomy were described in detail. Alternatives such as gastric balloon including duodenal switch were described. She is looking into the sleeve gastrectomy. 2. The [place] [facility]ariat[facility] surgical collaborative data and outcomes calculator were described with surgical options. 3. Recommend a bariatric metabolic panel to evaluate for micro- including macronutrient deficiencies. 4. Psych assessment per insurance guidelines. 5. Dietary surveillance and counseling was reviewed. Increased protein intake over 65 grams daily advised. 6. Patient would benefit from surgical intervention for correction of her morbid obesity with post-operative compliance. Thank you for this consultation. Past Medical History Past Medical History: GERD/Reflux Additional Past Medical History / Comment(s): Arthritis. Maternal family history of Factor 2 Gene Mutation. History of Any Multi-Drug Resistant Organisms: None Reported Past Surgical History: Cholecystectomy, Tonsillectomy Additional Past Surgical History / Comment(s): [place] teeth extracted, colonoscopy; EGD 2019 Past Anesthesia/Blood Transfusion Reactions: Family History of Problems w/ Anesthesia Additional Past Anesthesia/Blood Transfusion Reaction / Comm: Maternal grandmother, Mom PONV. Past Psychological History: No Psychological Hx Reported Additional Psychological History / Comment(s): OCD. Smoking Status: Never smoker Past Alcohol Use History: Rare Past Drug Use History: Marijuana Additional Drug Use History / Comment(s): Uses Marijuana 1-2 monthly. Patient aware not to use 24 hrs prior to procedure. - Past Family History Mother Family Medical History: No Reported History Surgical - Exam Vital Signs Temp Pulse Resp BP 98 F 102 H 18 137/92 12/21/19 16:21 12/21/19 16:21 12/21/19 16:21 12/21/19 16:21 Bariatric Checklist Checklist: Plan: Checklist: EGD: 1. Hiatal hernia: 2. H. Pylori: HgbA1c: Vitamin D: Smoking: Never smoker Primary care physician referral: Dr. Barba Psychiatry clearance: Cardiology clearance: Sleep study: Diet journal: VTE risk score: VTE risk level: Rehab needs at discharge:
== END | disposition home or self-care (01) ==
LOC: BARWHC3 15:32
PROVIDERS: ATTEND Surgery Plastic and Reconstructive Surgery
DX: E66.01 Morbid (severe) obesity due to excess calories (principal); M17.0 Bilateral primary osteoarthritis of knee; F32.9 Major depressive disorder, single episode, unspecified; K21.9 Gastro-esophageal reflux disease without esophagitis; Z79.891 Long term (current) use of opiate analgesic; Z79.899 Other long term (current) drug therapy; Z88.0 Allergy status to penicillin; Z88.1 Allergy status to other antibiotic agents; Z91.040 Latex allergy status; Z68.43 Body mass index [BMI] 50.0-59.9, adult
CPT/HCPCS: 99211

== ENCOUNTER → 2020-01-25 | Outpatient (CLI) | payer BC ==
--- NOTE | 2020-01-25 13:43 | P.PN ---
Subjective Progress Note Date: 01/25/20 DATE OF SERVICE: 01/25/20 CHIEF COMPLAINT: Morbid obesity HISTORY OF PRESENT ILLNESS: Olesya Varela is a 24-year-old female who comes with lifelong morbid obesity. She comes in looking into the sleeve gastrectomy. Patient also has history of abnormal computed tomography scan for left ovarian mass. She is pending follow-up with the net developer contract. No reports of nausea or vomiting. She presents for options for bariatric procedures. At height of 5 feet 5 inches, her ideal body weight is 149 pounds. She comes in 336 pounds. Unchanged from her previous visit 1 month ago. Her body mass index is 56.1. She is 187 pounds overweight. PAST MEDICAL HISTORY: 1. Morbid obesity due to excess calories 2. Body mass index of 56.1 3. Osteoarthritis of the knees. 4. Osteoarthritis of the lower back. 5. Gastroesophageal reflux disease 6. Depressive disorder PAST SURGICAL HISTORY: 1. Cholecystectomy 2. Tonsillectomy 3. Colonoscopy 4. EGD HOME MEDICATIONS: Home Medications Medication Instructions Recorded Confirmed Cetirizine HCl [Zyrtec] 10 mg PO HS 03/18/17 01/25/20 Norethindrone-E.estradiol-Iron 1 each PO HS 08/23/19 01/25/20 [Junel Fe 1 mg-20 Mcg Tablet] FLUoxetine HCL [PROzac] 20 mg PO DAILY 12/21/19 01/25/20 Previous Rx's Medication Instructions Recorded Omeprazole [PriLOSEC] 40 mg PO DAILY #90 cap 10/18/19 ALLERGIES: Allergies Allergy/AdvReac Type Severity Reaction Status Date / Time clindamycin Allergy Rash/Hives Verified 01/25/20 13:35 latex Allergy Itching, Verified 01/25/20 13:35 rash Penicillins Allergy Rash/Hives Verified 01/25/20 13:35 Sulfa (Sulfonamide Allergy Rash/Hives, Verified 01/25/20 13:35 Antibiotics) swelling SOCIAL HISTORY: Marijuana use. FAMILY HISTORY: No family history of ulcerative colitis disease or Crohn's disease. Family history of morbid obesity. History of Factor 2 gene mutation. REVIEW OF ORGAN SYSTEMS: CONSTITUTIONAL: At height of 5 feet 5 inches, her ideal body weight is 149 pounds. She comes in 336 pounds. Her body mass index is 56.1. She is 187 pounds overweight. HEENT: Denies any active troubles hearing. Wears glasses. ENDOCRINE: No diabetes. No hypothyroidism. CARDIOVASCULAR: No past reports heart attacks or chest pain. RESPIRATORY: No daytime somnolence. No asthma. GASTROINTESTINAL: Denies any bright red blood per rectum. Has diarrhea. No constipation. MUSCULOSKELETAL: Has lower back pain and joint pain. Has osteoarthritis of the knees. NEURO: No headaches. No seizure disorders. PSYCH: Has depression. No suicidal ideation. RHEUMATOLOGIC: No lupus. No rheumatoid arthritis. HEMATOLOGIC: Denies any abnormal bleeding or bruising. No personal history of DVTs. SKIN: No rash. No skin cancer. GENITOURINARY: Has left ovarian mass. PHYSICAL EXAM: VITAL SIGNS: Height 5 foot 5 inches, weight 336 pounds. BMI 56.1 Vital Signs Temp 98.7 F 01/25/20 13:35 Pulse 118 H 01/25/20 13:35 Resp 18 01/25/20 13:35 BP 122/88 01/25/20 13:35 Pulse Ox GENERAL: Well-developed in no acute distress. HEENT: No scleral icterus. Extraocular movements grossly intact. Hears conversational speech. No nasal drainage. NECK: Supple without lymphadenopathy. CHEST: Nonlabored respirations with equal bilateral excursions. CARDIOVASCULAR: Tachycardic. Distal 2+ pulses. ABDOMEN: Obese, soft, nontender, nondistended. MUSCULOSKELETAL: No clubbing, cyanosis. NEURO: No focal or lateralizing signs. Cranial nerves 2 through 12 grossly within normal limits. PSYCH: Appropriate affect. Alert and oriented to person, place and time. SKIN: Good skin turgor. Well perfused. ASSESSMENT: 1. Morbid obesity due to excess calories 2. Body mass index of 56.1 3. Osteoarthritis of the knees. 4. Osteoarthritis of the lower back. 5. Gastroesophageal reflux disease 6. Depressive disorder 7. Left ovarian teratoma 8. Tachycardia PLAN: 1. Bariatric options between a sleeve, band and a Denys-en-Y gastric bypass were reviewed in detail. The patient elected for a sleeve gastrectomy. Robotic assisted approach described. 2. The [place] [facility] Data was also reviewed with benefits and risks as described. 3. An 8 page second-generation bariatric consent form was reviewed in detail including potential of bleeding, infection, leaks, adequate weight loss, nutritional deficiencies which the patient demonstrated understanding of the risks. 4. A 2 week high-protein low caloric 800 kcal diet described to address hepatomegaly. 5. Preoperative labs including complete metabolic panel and CBC with type and screen recommended. 6. DVT prophylaxis per [place] [facility]ariat[facility] surgery collaborative. 7. Antibiotic prophylaxis. 8. Inpatient hospitalization anticipated for more than 2 nights. 9. All questions and concerns were addressed with the patient.1. Went over consent for sleeve gastrectomy and [facility] [place] outcomes calculator was reviewed. 10. Recommend EKG for persistent tachycardia. 11. All questions addressed. 12. Diagrams were reviewed where patient selected sleeve image. 13. Weight loss over 100 pounds described. 14. Risks of gastroesophageal reflux disease described and reviewed including risks of leak and management. 15. Recommend get copies of CT scan and report to [employer] contract for left ovarian mass and possible robotic oopherectomy. 16. Will need correction of macro and micronutrient deficiencies Objective - Vital Signs Vital signs: Intake & Output 01/24/20 01/25/20 01/25/20 18:59 06:59 18:59 Weight 152.861 kg
[2020-01-25 13:46] VITALS: BP 122/88; PULSE 118; RESP 18; TEMP 98.7; BMI 56.0
== END | disposition home or self-care (01) ==
LOC: BARWHC3 09:46
PROVIDERS: ATTEND Surgery Plastic and Reconstructive Surgery
DX: E66.01 Morbid (severe) obesity due to excess calories (principal); Z68.43 Body mass index [BMI] 50.0-59.9, adult; M17.0 Bilateral primary osteoarthritis of knee; M19.09 Primary osteoarthritis, other specified site; K21.9 Gastro-esophageal reflux disease without esophagitis; F32.9 Major depressive disorder, single episode, unspecified; D27.1 Benign neoplasm of left ovary; Z90.49 Acquired absence of other specified parts of digestive tract; Z88.2 Allergy status to sulfonamides; Z88.0 Allergy status to penicillin; Z88.1 Allergy status to other antibiotic agents; F12.90 Cannabis use, unspecified, uncomplicated; Z79.899 Other long term (current) drug therapy; Z79.890 Hormone replacement therapy; R00.0 Tachycardia, unspecified; Z91.040 Latex allergy status
CPT/HCPCS: 93005; 99211

== ENCOUNTER → 2020-04-18 | Outpatient (CLI) | payer BC ==
[2020-04-18 16:40] VITALS: BP 141/96; PULSE 99; RESP 18; TEMP 98; BMI 54.7
--- NOTE | 2020-04-18 16:51 | P.PN ---
Subjective Progress Note Date: 04/18/20 DATE OF SERVICE: 04/18/2020 CHIEF COMPLAINT: Morbid obesity HISTORY OF PRESENT ILLNESS: Olesya Varela is a 24-year-old female who comes with lifelong morbid obesity. She comes in looking into the sleeve gastrectomy. She has completed medical supervised weight loss. She has completed psychological assessment. She denies active severe gastroesophageal reflux disease. She comes in for surgical weight loss. At height of 5 feet 5 inches, her ideal body weight is 149 pounds. She was 336 pounds, BMI 56.1. She comes in 328 pounds from 336 pounds, 3 months ago. She has lost 8 pounds in 3 months. She is 179 pounds overweight. PAST MEDICAL HISTORY: 1. Morbid obesity due to excess calories 2. Body mass index of 56.1 3. Osteoarthritis of the knees. 4. Osteoarthritis of the lower back. 5. Gastroesophageal reflux disease 6. Depressive disorder PAST SURGICAL HISTORY: 1. Cholecystectomy 2. Tonsillectomy 3. Colonoscopy 4. EGD HOME MEDICATIONS: Home Medications Medication Instructions Recorded Confirmed Cetirizine HCl [Zyrtec] 10 mg PO HS 03/18/17 01/25/20 Norethindrone-E.estradiol-Iron 1 each PO HS 08/23/19 01/25/20 [Junel Fe 1 mg-20 Mcg Tablet] FLUoxetine HCL [PROzac] 20 mg PO DAILY 12/21/19 01/25/20 Previous Rx's Medication Instructions Recorded Omeprazole [PriLOSEC] 40 mg PO DAILY #90 cap 10/18/19 ALLERGIES: Allergies Allergy/AdvReac Type Severity Reaction Status Date / Time clindamycin Allergy Rash/Hives Verified 01/25/20 13:35 latex Allergy Itching, Verified 01/25/20 13:35 rash Penicillins Allergy Rash/Hives Verified 01/25/20 13:35 Sulfa (Sulfonamide Allergy Rash/Hives, Verified 01/25/20 13:35 Antibiotics) swelling SOCIAL HISTORY: Marijuana use. FAMILY HISTORY: No family history of ulcerative colitis disease or Crohn's disease. Family history of morbid obesity. History of Factor 2 gene mutation. REVIEW OF ORGAN SYSTEMS: CONSTITUTIONAL: At height of 5 feet 5 inches, her ideal body weight is 149 pounds. She comes in 337 pounds. Her body mass index is 56.1. She is 187 pounds overweight. HEENT: Denies any active troubles hearing. Wears glasses. ENDOCRINE: No diabetes. No hypothyroidism. CARDIOVASCULAR: No past reports heart attacks or chest pain. RESPIRATORY: No daytime somnolence. No asthma. GASTROINTESTINAL: Denies any bright red blood per rectum. Has diarrhea. No constipation. MUSCULOSKELETAL: Has lower back pain and joint pain. Has osteoarthritis of the knees. NEURO: No headaches. No seizure disorders. PSYCH: Has depression. No suicidal ideation. RHEUMATOLOGIC: No lupus. No rheumatoid arthritis. HEMATOLOGIC: Denies any abnormal bleeding or bruising. No personal history of DVTs. SKIN: No rash. No skin cancer. GENITOURINARY: Has left ovarian mass. PHYSICAL EXAM: VITAL SIGNS: Height 5 foot 5 inches, weight 328 pounds. BMI 54.7 Vital Signs Temp 98 F 04/18/20 16:35 Pulse 99 04/18/20 16:35 Resp 18 04/18/20 16:35 BP 141/96 04/18/20 16:35 Pulse Ox GENERAL: Well-developed in no acute distress. HEENT: No scleral icterus. Extraocular movements grossly intact. Hears conversational speech. No nasal drainage. NECK: Supple without lymphadenopathy. CHEST: Nonlabored respirations with equal bilateral excursions. CARDIOVASCULAR: Tachycardic. Distal 2+ pulses. ABDOMEN: Obese, soft, nontender, nondistended. MUSCULOSKELETAL: No clubbing, cyanosis. NEURO: No focal or lateralizing signs. Cranial nerves 2 through 12 grossly within normal limits. PSYCH: Appropriate affect. Alert and oriented to person, place and time. SKIN: Good skin turgor. Well perfused. ASSESSMENT: 1. Morbid obesity due to excess calories 2. Body mass index of 56.1 3. Osteoarthritis of the knees. 4. Osteoarthritis of the lower back. 5. Gastroesophageal reflux disease 6. Depressive disorder 7. Left ovarian teratoma 8. Tachycardia PLAN: 1. Bariatric options between a sleeve, band and a Denys-en-Y gastric bypass were reviewed in detail. The patient elected for a sleeve gastrectomy. Robotic assisted approach described. 2. The [place] [facility] Data was also reviewed with benefits and risks as described. 3. An 8 page second-generation bariatric consent form was reviewed in detail including potential of bleeding, infection, leaks, adequate weight loss, nutritional deficiencies which the patient demonstrated understanding of the risks. 4. A 2 week high-protein low caloric 800 kcal diet described to address hepatomegaly. 5. Preoperative labs including complete metabolic panel and CBC with type and screen recommended. 6. DVT prophylaxis per [place] [facility]ariat[facility] surgery collaborative. 7. Antibiotic prophylaxis. 8. Inpatient hospitalization anticipated for more than 2 nights. 9. All questions and concerns were addressed with the patient. 10. She is at elevated risk for perioperative complications with BMI over 50. Objective - Vital Signs Vital signs: Vital Signs Temp 98 F 04/18/20 16:35 Pulse 99 04/18/20 16:35 Resp 18 04/18/20 16:35 BP 141/96 04/18/20 16:35 Pulse Ox Intake & Output 04/17/20 04/18/20 04/18/20 18:59 06:59 18:59 Weight 149.141 kg
== END | disposition home or self-care (01) ==
LOC: BARWHC3 16:18
PROVIDERS: ATTEND Surgery Plastic and Reconstructive Surgery
DX: E66.01 Morbid (severe) obesity due to excess calories (principal); M17.0 Bilateral primary osteoarthritis of knee; K21.9 Gastro-esophageal reflux disease without esophagitis; F32.9 Major depressive disorder, single episode, unspecified; D27.1 Benign neoplasm of left ovary; M47.817 Spondylosis without myelopathy or radiculopathy, lumbosacral region; R00.0 Tachycardia, unspecified; Z68.43 Body mass index [BMI] 50.0-59.9, adult; Z88.0 Allergy status to penicillin; Z91.041 Radiographic dye allergy status; Z88.2 Allergy status to sulfonamides; Z88.1 Allergy status to other antibiotic agents; Z79.899 Other long term (current) drug therapy; Z90.49 Acquired absence of other specified parts of digestive tract
CPT/HCPCS: 99211

== ENCOUNTER → 2020-04-19 | Outpatient (CLI) | payer BC ==
[2020-04-19 10:21] LABS: Basophils # (A) 0.1 k/uL (0-0.2); Basophils % (A) 1 %; Eosinophils # (A) 0.3 k/uL (0-0.7); Eosinophils % (A) 4 %; HCT 38.1 % (34.0-46.0); HGB 12.7 gm/dL (11.4-16.0); Lymphocytes # (A) 2.6 k/uL (1.0-4.8); Lymphocytes % (A) 30 %; MCH 26.5 pg (25.0-35.0); MCHC 33.3 g/dL (31.0-37.0); MCV 79.8 fL (80.0-100.0); Mean Platelet Volume 7.2; Monocytes # (A) 0.6 k/uL (0-1.0); Monocytes % (A) 7 %; Neutrophils % (A) 58 %; Platelet Count 274 k/uL (150-450); RBC 4.77 m/uL (3.80-5.40); RDW 13.6 % (11.5-15.5); WBC 8.6 k/uL (3.8-10.6)
[2020-04-19 10:30] LABS: ALT 21 U/L (4-34); AST 28 U/L (14-36); African American GFR (CKD) >90 (>60 ml/min/1.73 sqM); Albumin 4.3 g/dL (3.5-5.0); Alkaline Phosphatase 79 U/L (38-126); Anion Gap 6 mmol/L; Blood Urea Nitrogen 12 mg/dL (7-17); Calcium 9.7 mg/dL (8.4-10.2); Carbon Dioxide 27 mmol/L (22-30); Chloride 106 mmol/L (98-107); Glucose 96 mg/dL (74-99); Non-African American GFR(CKD) >90 (>60 ml/min/1.73 sqM); Sodium 139 mmol/L (137-145); Total Bilirubin 0.3 mg/dL (0.2-1.3); Total Protein 7.5 g/dL (6.3-8.2)
== END | disposition home or self-care (01) ==
LOC: LABPAT 09:11
PROVIDERS: ATTEND Surgery Plastic and Reconstructive Surgery
DX: Z01.818 Encounter for other preprocedural examination (principal)
CPT/HCPCS: 80053; 85025

== ENCOUNTER 2020-04-23 07:30 | Inpatient (IN) | payer BC ==
--- NOTE | 2020-04-23 05:06 | P.GSHP ---
History of Present Illness H&P Date: 04/23/20 DATE OF SERVICE: 04/23/20 CHIEF COMPLAINT: Morbid obesity HISTORY OF PRESENT ILLNESS: Olesya Varela is a 25-year-old female who comes with lifelong morbid obesity. She comes in looking into the sleeve gastrectomy. Patient also has history of abnormal computed tomography scan for left ovarian mass. She is pending follow-up with the productivity engineer. No reports of nausea or vomiting. She presents for options for bariatric procedures. At height of 5 feet 5 inches, her ideal body weight is 149 pounds. She comes in 336 pounds. Unchanged from her previous visit 1 month ago. Her body mass index is 56.1. She is 187 pounds overweight. PAST MEDICAL HISTORY: 1. Morbid obesity due to excess calories 2. Body mass index of 56.1 3. Osteoarthritis of the knees. 4. Osteoarthritis of the lower back. 5. Gastroesophageal reflux disease 6. Depressive disorder PAST SURGICAL HISTORY: 1. Cholecystectomy 2. Tonsillectomy 3. Colonoscopy 4. EGD HOME MEDICATIONS: Home Medications Medication Instructions Recorded Confirmed Cetirizine HCl [Zyrtec] 10 mg PO HS 03/18/17 01/25/20 Norethindrone-E.estradiol-Iron 1 each PO HS 08/23/19 01/25/20 [Junel Fe 1 mg-20 Mcg Tablet] FLUoxetine HCL [PROzac] 20 mg PO DAILY 12/21/19 01/25/20 Previous Rx's Medication Instructions Recorded Omeprazole [PriLOSEC] 40 mg PO DAILY #90 cap 10/18/19 ALLERGIES: Allergies Allergy/AdvReac Type Severity Reaction Status Date / Time clindamycin Allergy Rash/Hives Verified 01/25/20 13:35 latex Allergy Itching, Verified 01/25/20 13:35 rash Penicillins Allergy Rash/Hives Verified 01/25/20 13:35 Sulfa (Sulfonamide Allergy Rash/Hives, Verified 01/25/20 13:35 Antibiotics) swelling SOCIAL HISTORY: Marijuana use. FAMILY HISTORY: No family history of ulcerative colitis disease or Crohn's disease. Family history of morbid obesity. History of Factor 2 gene mutation. REVIEW OF ORGAN SYSTEMS: CONSTITUTIONAL: At height of 5 feet 5 inches, her ideal body weight is 149 pounds. She comes in 336 pounds. Her body mass index is 56.1. She is 187 pounds overweight. HEENT: Denies any active troubles hearing. Wears glasses. ENDOCRINE: No diabetes. No hypothyroidism. CARDIOVASCULAR: No past reports heart attacks or chest pain. RESPIRATORY: No daytime somnolence. No asthma. GASTROINTESTINAL: Denies any bright red blood per rectum. Has diarrhea. No constipation. MUSCULOSKELETAL: Has lower back pain and joint pain. Has osteoarthritis of the knees. NEURO: No headaches. No seizure disorders. PSYCH: Has depression. No suicidal ideation. RHEUMATOLOGIC: No lupus. No rheumatoid arthritis. HEMATOLOGIC: Denies any abnormal bleeding or bruising. No personal history of DVTs. SKIN: No rash. No skin cancer. GENITOURINARY: Has left ovarian mass. PHYSICAL EXAM: VITAL SIGNS: Height 5 foot 5 inches, weight 336 pounds. BMI 56.1 GENERAL: Well-developed in no acute distress. HEENT: No scleral icterus. Extraocular movements grossly intact. Hears conversational speech. No nasal drainage. NECK: Supple without lymphadenopathy. CHEST: Nonlabored respirations with equal bilateral excursions. CARDIOVASCULAR: Tachycardic. Distal 2+ pulses. ABDOMEN: Obese, soft, nontender, nondistended. MUSCULOSKELETAL: No clubbing, cyanosis. NEURO: No focal or lateralizing signs. Cranial nerves 2 through 12 grossly within normal limits. PSYCH: Appropriate affect. Alert and oriented to person, place and time. SKIN: Good skin turgor. Well perfused. ASSESSMENT: 1. Morbid obesity due to excess calories 2. Body mass index of 56.1 3. Osteoarthritis of the knees. 4. Osteoarthritis of the lower back. 5. Gastroesophageal reflux disease 6. Depressive disorder 7. Left ovarian teratoma 8. Tachycardia PLAN: 1. Bariatric options between a sleeve, band and a Denys-en-Y gastric bypass were reviewed in detail. The patient elected for a sleeve gastrectomy. Robotic assisted approach described. 2. The [place] [facility] Data was also reviewed with benefits and risks as described. 3. An 8 page second-generation bariatric consent form was reviewed in detail including potential of bleeding, infection, leaks, adequate weight loss, nutritional deficiencies which the patient demonstrated understanding of the risks. 4. A 2 week high-protein low caloric 800 kcal diet described to address hepatomegaly. 5. Preoperative labs including complete metabolic panel and CBC with type and screen recommended. 6. DVT prophylaxis per [place] [facility]. 7. Antibiotic prophylaxis. 8. Inpatient hospitalization anticipated for more than 2 nights. 9. All questions and concerns were addressed with the patient. Past Medical History Past Medical History: GERD/Reflux Additional Past Medical History / Comment(s): Arthritis. Maternal family history of Factor 2 Gene Mutation, environmental allergies History of Any Multi-Drug Resistant Organisms: None Reported Past Surgical History: Cholecystectomy, Tonsillectomy Additional Past Surgical History / Comment(s): [place] teeth extracted, colonoscopy; EGD 2019 Past Anesthesia/Blood Transfusion Reactions: Family History of Problems w/ Anesthesia, Motion Sickness Additional Past Anesthesia/Blood Transfusion Reaction / Comment(s): Maternal grandmother, Mom PONV. Smoking Status: Never smoker - Past Family History Mother Family Medical History: No Reported History Medications and Allergies Home Medications Medication Instructions Recorded Confirmed Type Cetirizine HCl [Zyrtec] 10 mg PO HS 03/18/17 04/18/20 History Norethindrone-E.estradiol-Iron 1 each PO HS 08/23/19 04/18/20 History [Junel Fe 1 mg-20 Mcg Tablet] FLUoxetine HCL [PROzac] 20 mg PO HS 12/21/19 04/18/20 History Omeprazole [PriLOSEC] 40 mg PO HS 04/11/20 04/18/20 History Allergies Allergy/AdvReac Type Severity Reaction Status Date / Time clindamycin Allergy Rash/Hives Verified 04/18/20 16:35 latex Allergy Itching, Verified 04/18/20 16:35 rash Penicillins Allergy Rash/Hives Verified 04/18/20 16:35 Sulfa (Sulfonamide Allergy Rash/Hives, Verified 04/18/20 16:35 Antibiotics) swelling
[~2020-04-23 07:30] MED LIST changes: +DEXAMETHASONE SOD PHOSPHATE 4 MG/ML 1 ML VIAL IV ONE; +HYDROmorphone 0.5 MG/0.5 ML SYRINGE IVP PRN; -LACTATED RINGERS 1,000 ML IV SCH; +LIDOCAINE 1% (10MG/ML) FOR IV START INTRADERMA PRN; +ONDANSETRON 4 MG/2 ML VIAL IVP ONE; +SCOPOLAMINE 1.5MG/72HR PATCH TRANSDERM ONE; +SCOPOLAMINE 1.5MG/72HR PATCH TRANSDERM STA; +ceFAZolin 3 GM in SODIUM CHLORIDE 0.9% 100 ML IVPB PRN
[2020-04-23] MEDS ORDERED: CHLORHEXIDINE GLUCONATE 15 ML CUP MUCOUS MEM ONE (08:40)
[2020-04-23] MEDS: LACTATED RINGERS 1,000 ML IV SCH ×2 (09:01→23:36)
[2020-04-23] MEDS ORDERED: ROCURONIUM 10 MG/ML (10 ML VIAL) IV ONE (09:08)
[2020-04-23] MEDS ORDERED: PROPOFOL 10 MG/ML 20 ML VIAL IV ONE (09:08)
[2020-04-23] MEDS ORDERED: SODIUM CHLORIDE 0.9% 100 ML BAG ONE (09:08)
[2020-04-23] MEDS ORDERED: LIDOCAINE 1% INJ 10MG/ML (20 ML MDV) ONE (09:08)
[2020-04-23] MEDS ORDERED: ceFAZolin 1,000 MG VIAL ONE (09:08)
[2020-04-23] MEDS ORDERED: fentaNYL (PF) 50 MCG/ML 2 ML AMP ONE (09:08)
[2020-04-23] MEDS ORDERED: HYDROmorphone (PF) 1 MG/ML ONE (09:08)
[2020-04-23] MEDS ORDERED: NEOSTIGMINE 1 MG/ML 10 ML VIAL ONE (09:08)
[2020-04-23] MEDS ORDERED: MIDAZOLAM 2 MG/2 ML VIAL ONE (09:08)
[2020-04-23] MEDS ORDERED: SUCCINYLCHOLINE CHLORIDE 100 MG/5 ML SYR IV ONE (09:08)
[2020-04-23] MEDS ORDERED: GLYCOPYRROLATE 0.2 MG/ML 2 ML VIAL ONE (09:08)
[2020-04-23] MEDS ORDERED: LIDOCAINE 1%-EPI 1:100,000 20 ML VIAL SQ ONE ×2 (09:34→09:38)
[2020-04-23] MEDS ORDERED: NALOXONE 0.4 MG/ML 1 ML VIAL IV PRN (10:45)
[2020-04-23] MEDS ORDERED: diphenhydrAMINE 50 MG/ML 1 ML VIAL IVP PRN (10:45)
[2020-04-23] MEDS ORDERED: HYDROmorphone 1 MG/ML 1 ML SYRINGE IVP PRN (10:45)
[2020-04-23] MEDS ORDERED: DEXAMETHASONE SOD PHOSPHATE 10 MG/ML 1 ML VIAL IV PRN (10:48)
[2020-04-23] MEDS ORDERED: diphenhydrAMINE 50 MG/ML 1 ML VIAL IVP ONE (10:50)
--- NOTE | 2020-04-23 10:56 | P.OP ---
Date of Procedure: 04/23/20 Description of Procedure: SURGEON: KAMALJIT WILSON MD PREOPERATIVE DIAGNOSES: 1. Morbid obesity due to excess calories 2. Body mass index of 59.6 3. Osteoarthritis of the knees. 4. Osteoarthritis of the lower back. 5. Gastroesophageal reflux disease 6. Depressive disorder 7. Left ovarian teratoma 8. Tachycardia POSTOPERATIVE DIAGNOSES: 1. Morbid obesity due to excess calories 2. Body mass index of 59.6 3. Osteoarthritis of the knees. 4. Osteoarthritis of the lower back. 5. Gastroesophageal reflux disease 6. Depressive disorder 7. Left ovarian teratoma 8. Tachycardia OPERATION: 1. Robotic assisted daVinci Xi laparoscopic sleeve gastrectomy with 40-Dutch bougie, multiport. 2. Intraoperative esophagogastroduodenoscopy. ANESTHESIA: Gen. local anesthetic ESTIMATED BLOOD LOSS: 5 mL SPECIMENS REMOVED: Sleeve gastrectomy COMPLICATIONS: None. FINDINGS: 1. Negative intraoperative esophagogastrojejunoscopy leak test. 2. No hepatomegaly and no large hiatus hernia. 3. Sleeve gastrectomy, 25 x 5 cm INDICATIONS: Olesya Varela is a 25-year-old female who comes with lifelong morbid obesity. She comes in looking into the sleeve gastrectomy. Patient also has history of abnormal computed tomography scan for left ovarian mass. She is pending follow-up with the industrial technologist. No reports of nausea or vomiting. She presents for options for bariatric procedures. At height of 5 feet 3 inches, her ideal body weight is 149 pounds. Her highest is 336 pounds. She comes in 326 pounds. She has lost 10 pounds. Her BMI initial 59.6. She is 186 pounds overweight. All surgical options for morbid obesity had been described using the [place] [facility] comorbidity resolution including complication risk score. A second-generation bariatric consent form was described in detail including the possibility of protein malnutrition, leaks, gastric stricture, venous thrombosis, gastroesophageal reflux disease, need for further surgery for which she demonstrated understanding. Benefits and risks of the procedure were described at length. Informed consent was obtained. DESCRIPTION: The patient was brought into the operating room theater. Preoperatively she had received Lovenox subcutaneously for DVT prophylaxis. Additionally she had Peridex oral solution as an oral decontaminant. After general induction, the abdomen was prepped and draped in standard sterile fashion. An Ioban draping was placed along the abdomen. A robotic da Luis Daniel Xi system was prepped and primed. At 13 cm from the xiphoid, proposed port sites were marked with indelible marker along the anterior axillary line bilaterally, mid axillary line bilaterally with each ports were marked 10 to 15 cm from each other. The senior court office assistant port was marked along the left lateral abdominal wall. The robotic stapler port was marked for the right midclavicular line. A 5 mm 0 degrees laparoscopic trocar entry was performed along the left upper quadrant. The abdomen was insufflated to 15 mmHg pressure was tolerated well. Diagnostic laparoscopy demonstrated no injury to bowel, viscera, or mesentery. No evidence of large hiatus hernia was identified. The liver edge was sharp consistent with 2 week low-carb high-protein diet. The ports were readjusted at 13 cm from the xiphoid to avoid additional adhesions. A 8 mm port was placed along the left upper abdominal wall after exchanging the 5 mm port. A separate 8 mm port was placed along the left lateral abdominal wall. Please note that the ports were placed at least 20 cm away from the target anatomy. Care was taken to check each robotic arms were safely away from collision with the bed or the patient. At the epigastrium, a medium sized Milagros liver retractor was placed under direct visualization with the Iron Special Technical Operations Officer placed under the right shoulder of the patient. Next, 12-mm robot stapler port was placed along the right upper quadrant. The camera 8-mm port was maintained along the epigastrium. The patient was repositioned in reverse Trendelenburg position at 21-degrees after lowering the bed. The robot was docked along the left side of the patient. Using a grasper for arm 4, a vessel sealer for arm 3, including grasper for arm 1, the robotic system was docked and primed as described. Instruments were interchanged by the senior court office assistant for stapler loads. The camera was placed at 30-degrees down. I had sat at the console. The pylorus was identified and 6 cm proximally along the greater curvature of the stomach, the short gastrics were mobilized upwards to the angle of His using a vessel sealer. Hemostasis was excellent during this portion of the procedure. Next, the upper pole of the stomach was adherent to the left anh, which was gently dissected free using atraumatic grasper. I went to the head of the bed and placed 40-Dutch blunt bougie into the stomach. The bougie was readjusted by the nurse gasoline finisher. Robotic stapler green load 60 mm 1 followed by blue 60 mm x 5 loads were used to create the sleeve. Initial firing was across the antrum of the stomach towards the angle of His. The staple line was linear without corkscrewing. The space from the angularis incisura of the sleeve was approximately 4 cm. I then went to the head of the bed to perform the intraoperative esophagogastroduodenoscopy leak test. The bougie was withdrawn. The upper pole of the stomach was bathed using normal saline solution. The scope was withdrawn with careful inspection along the staple line for which no leaks were found along the entire length. Additionally,the sleeve was completely hemostatic without any encroachment along the angularis incisura. Its topology was a soft "J". No stricture was encountered upon placement of the scope. The GI tract was desufflated. The patient tolerated this portion of the procedure well. The scope was completely withdrawn. The robot was undocked. I then rescrubbed into case, whereby the irrigation fluid was aspirated from the abdominal cavity. Tisseel fibrin sealant was placed along the entire staple length. Once dried the Milagros liver retractor was removed. Attention was now brought to removal of the specimen. The distal end of the sleeve gastrectomy specimen was brought out through the 12 mm port at the left upper quadrant. The specimen was gently removed en total. No contamination had occurred during this process. All instruments and pneumoperitoneum including irrigation fluid was removed from the abdominal cavity. The 12 mm port site was closed using 0-Vicryl and Abdullahi Castro and irrigated with diluted hydrogen peroxide. The final incisions were closed using subcuticular interrupted suture of 4-0 Monocryl. Exofin was applied to the skin once the skin had been cleansed. OptiFoam dressing was placed along the stomach extraction site. The sleeve specimen was measured and checked also for leaks which none were found. At the end of the procedure, needle, sponge, and instrument count was verified correct by the surgical oncologist. The patient was taken to the postanesthesia care unit in stable condition. She had tolerated the procedure well. Intraoperative films and findings were reviewed with the patient's family.
[2020-04-23] MEDS ORDERED: ONDANSETRON 4 MG/2 ML VIAL IVP ONE (11:15)
[2020-04-23] MEDS ORDERED: HYDROmorphone 0.5 MG/0.5 ML SYRINGE IVP ONE (11:30)
[2020-04-23] MEDS: ALBUTEROL NEBULIZED 2.5 MG/3 ML INHALATION SCH ×3 (12:00→19:47)
[2020-04-23] MEDS ORDERED: ACETAMINOPHEN IV (For NPO) 1,000 MG in EMPTY BAG 1 BAG IVPB ONE (12:00)
[2020-04-23] MEDS: DEXAMETHASONE SOD PHOSPHATE 4 MG/ML 1 ML VIAL IV SCH ×3 (12:35→23:31)
[2020-04-23] MEDS: ONDANSETRON 4 MG/2 ML VIAL IVP SCH ×3 (12:39→23:30)
[2020-04-23] MEDS: SIMETHICONE 40 MG/0.6 ML DROPS 2,000 MG/30 ML BOTTLE PO SCH ×3 (12:43→23:31)
[2020-04-23] MEDS: HYOSCYAMINE ORAL DROPS 1.875 MG/15 ML BOTTLE PO SCH ×3 (12:46→23:30)
[2020-04-23] MEDS: KETOROLAC 15 MG/ML 1 ML VIAL IVP SCH ×3 (12:47→23:30)
[2020-04-23] MEDS: 0.9% NACL WITH KCL 20 MEQ/L 1,000 ML IV SCH ×2 (15:28→17:13)
[2020-04-23] MEDS ORDERED: ceFAZolin 3 GM in SODIUM CHLORIDE 0.9% 100 ML IVPB SCH (16:00)
[2020-04-23] MEDS ORDERED: LORATADINE 10 MG TAB PO SCH (21:00)
[2020-04-24] MEDS: 0.9% NACL WITH KCL 20 MEQ/L 1,000 ML IV SCH (05:28)
[2020-04-24] MEDS: SIMETHICONE 40 MG/0.6 ML DROPS 2,000 MG/30 ML BOTTLE PO SCH ×2 (05:31→12:12)
[2020-04-24] MEDS: HYOSCYAMINE ORAL DROPS 1.875 MG/15 ML BOTTLE PO SCH ×2 (05:32→12:11)
[2020-04-24] MEDS: ONDANSETRON 4 MG/2 ML VIAL IVP SCH ×2 (05:33→12:07)
[2020-04-24] MEDS: KETOROLAC 15 MG/ML 1 ML VIAL IVP SCH ×2 (05:33→12:09)
[2020-04-24] MEDS: DEXAMETHASONE SOD PHOSPHATE 4 MG/ML 1 ML VIAL IV SCH ×2 (05:34→12:10)
[2020-04-24 06:54] LABS: Basophils % (A) 0 %; Eosinophils % (A) 0 %; HCT 36.5 % (34.0-46.0); HGB 11.8 gm/dL (11.4-16.0); Lymphocytes % (A) 7 %; MCH 25.8 pg (25.0-35.0); MCHC 32.3 g/dL (31.0-37.0); MCV 79.9 fL (80.0-100.0); Mean Platelet Volume 7.5; Monocytes # (A) 0.4 k/uL (0-1.0); Monocytes % (A) 3 %; Neutrophils # (A) 13.2 k/uL (1.3-7.7); Neutrophils % (A) 90 %; Platelet Count 262 k/uL (150-450); RBC 4.56 m/uL (3.80-5.40); RDW 13.8 % (11.5-15.5); WBC 14.7 k/uL (3.8-10.6)
[2020-04-24] MEDS ORDERED: CHLORHEXIDINE GLUCONATE 15 ML CUP MUCOUS MEM PRN (07:00)
[2020-04-24] MEDS ORDERED: PANTOPRAZOLE 40 MG/10 ML VIAL IVP PRN (07:00)
[2020-04-24] MEDS ORDERED: ENOXAPARIN 40 MG/0.4 ML SYRINGE SQ PRN (07:00)
[2020-04-24 07:26] VITALS: BP 108/71; TEMP 98.6
[2020-04-24] MEDS ORDERED: 0.9% NACL WITH KCL 20 MEQ/L 1,000 ML IV SCH (08:00)
[2020-04-24] MEDS: ALBUTEROL NEBULIZED 2.5 MG/3 ML INHALATION SCH ×3 (08:08→15:27)
[2020-04-24] MEDS ORDERED: PANTOPRAZOLE 40 MG/10 ML VIAL IV SCH (09:00)
[2020-04-24] MEDS ORDERED: ENOXAPARIN 40 MG/0.4 ML SYRINGE SQ SCH (09:00)
[2020-04-24] MEDS ORDERED: SODIUM CHLORIDE 0.9% 2,000 ML IV ONE (09:05)
--- NOTE | 2020-04-24 09:05 | P.PN ---
Subjective Progress Note Date: 04/24/20 CHIEF COMPLAINT: Morbid obesity HISTORY OF PRESENT ILLNESS: Olesya Varela is a 25-year-old female status post sleeve gastrectomy, 04/23/20. She has mild nausea. She completed her esophagram. Pain is well controlled. "I am just tired," she reports. REVIEW OF ORGAN SYSTEMS: No fevers or chills. Denies shortness of breath or chest pain. PHYSICAL EXAM: VITAL SIGNS: Reviewed GENERAL: Well-developed in no acute distress. HEENT: No scleral icterus. Extraocular movements grossly intact. Hears conversational speech. No nasal drainage. NECK: Supple without lymphadenopathy. CHEST: Nonlabored respirations with equal bilateral excursions. CARDIOVASCULAR: Tachycardic. Distal 2+ pulses. ABDOMEN: Obese, soft, nontender, nondistended. MUSCULOSKELETAL: No clubbing, cyanosis. NEURO: No focal or lateralizing signs. Cranial nerves 2 through 12 grossly within normal limits. PSYCH: Appropriate affect. Alert and oriented to person, place and time. SKIN: Good skin turgor. Well perfused. LABS: WBC elevated over 14,000 expected post-surgery response STUDIES: Esophogram independently reviewed by me without leak or obstruction. ASSESSMENT: 1. Morbid obesity due to excess calories 2. Body mass index of 56.1 3. Osteoarthritis of the knees. 4. Osteoarthritis of the lower back. 5. Gastroesophageal reflux disease 6. Depressive disorder 7. Left ovarian teratoma 8. Tachycardia, pre-existing 9. Status post sleeve gastrectomy 10. Dehydration PLAN: 1. Bolus 2-L normal saline for dehydration 2. Bariatric clear liquid diet 3. Disposition pending tolerating liquids and follow up with bariatric center Objective - Vital Signs Vital signs: Vital Signs Temp 98.6 F 04/24/20 07:25 Pulse 95 04/24/20 07:25 Resp 20 04/24/20 07:25 BP 108/71 04/24/20 07:25 Pulse Ox 92 L 04/24/20 07:25 Intake & Output 04/23/20 04/24/20 04/24/20 18:59 06:59 18:59 Intake Total 500 Output Total 5 Balance 495 Weight 148.6 kg Intake: IV 500 Output: Estimated Blood Loss 5 Other: Voiding Method Toilet # Voids 2 - Labs CBC & Chem 7: 04/24/20 05:36 Labs: Abnormal Lab Results - Last 24 Hours (Table) 04/24/20 Range/Units 05:36 WBC 14.7 H (3.8-10.6) k/uL MCV 79.9 L (80.0-100.0) fL Neutrophils # 13.2 H (1.3-7.7) k/uL
[2020-04-24 09:47] LABS: African American GFR (CKD) 141.5 (60.0-200.0); Anion Gap 10.2 mmol/L (4.00-12.00); Calcium 9.5 mg/dL (8.7-10.3); Carbon Dioxide 22.8 mmol/L (21.6-31.8); Magnesium 1.9 mg/dL (1.5-2.4); Non-African American GFR(CKD) 122.1 (60.0-200.0); Phosphorus 3.4 mg/dL (2.4-5.1); Potassium 4.7 mmol/L (3.5-5.5)
[2020-04-24] MEDS: ACETAMINOPHEN ORAL SUSP (PEDS) 3,840 MG/120 ML BOTTLE PO SCH ×2 (10:22→14:44)
--- NOTE | 2020-04-24 12:23 | FL ---
EXAMINATION TYPE: FL UGI DATE OF EXAM: 04/24/2020 COMPARISON: NONE HISTORY: Postop gastric sleeve TECHNIQUE: A single contrast UGI study is performed. FINDINGS: Patient received 25 cc Isovue-370 orally, 19 seconds fluoroscopy time utilized, 3 intraoper ative images Attention right due to the level of the distal esophagus and stomach. There is no obstruction to flow . Postop change noted to the stomach. No evident leak. IMPRESSION: No evident complication status post gastric sleeve on this limited upper GI
[2020-04-24 13:31] VITALS: BMI 58.0
--- NOTE | 2020-04-24 13:48 | P.DS ---
Providers Date of admission: 04/23/20 08:10 Expected date of discharge: 04/24/20 Attending physician: Maria Isabel Blancas Primary care physician: David Barba - Discharge Diagnosis(es) (1) Tachycardia Current Visit: Yes Status: Acute (2) Adult BMI 50.0-59.9 kg/sq m Current Visit: Yes Status: Acute (3) Morbid obesity due to excess calories Current Visit: Yes Status: Acute (4) Osteoarthritis of hips, bilateral Current Visit: Yes Status: Acute (5) Osteoarthritis, knee Current Visit: Yes Status: Acute (6) Hypertensive heart disease Current Visit: No Status: Acute Hospital Course: POSTOPERATIVE DIAGNOSES: 1. Morbid obesity due to excess calories 2. Body mass index of 59.6 3. Osteoarthritis of the knees. 4. Osteoarthritis of the lower back. 5. Gastroesophageal reflux disease 6. Depressive disorder 7. Left ovarian teratoma 8. Tachycardia COURSE: Olesya Varela is a 25-year-old female with lifelong morbid obesity. She comes in looking into the sleeve gastrectomy. She is status post sleeve gastrectomy. She completed a barium swallow without obstruction. She was tolerated liquids without difficulty. She was ambulating. Her pain was well controlled. Discharge instructions were reviewed with follow-up. Procedures: OPERATION: 1. Robotic assisted daVinci Xi laparoscopic sleeve gastrectomy with 40-Kosovan bougie, multiport. 2. Intraoperative esophagogastroduodenoscopy. ANESTHESIA: Gen. local anesthetic ESTIMATED BLOOD LOSS: 5 mL SPECIMENS REMOVED: Sleeve gastrectomy COMPLICATIONS: None. FINDINGS: 1. Negative intraoperative esophagogastrojejunoscopy leak test. 2. No hepatomegaly and no large hiatus hernia. 3. Sleeve gastrectomy, 25 x 5 cm Patient Condition at Discharge: Good Plan - Discharge Summary Discharge Rx Participant: Yes New Discharge Prescriptions: New bisacodyL [Dulcolax] 5 mg PO DAILY PRN #10 tablet. PRN Reason: Constipation Simethicone 40 mg/0.6 ml Drops [Mylicon Drops] 40 mg PO PCHS PRN #30 ml PRN Reason: Gas Omeprazole [PriLOSEC] 40 mg PO DAILY #30 capsule. Ondansetron Odt [Zofran Odt] 4 mg PO Q8HR PRN #9 tab PRN Reason: Nausea Acetaminophen Oral Susp [Tylenol Oral Susp] 1,000 mg PO Q4-6H PRN #400 ml PRN Reason: Pain Continue Cetirizine HCl [Zyrtec] 10 mg PO HS Norethindrone-E.estradiol-Iron [Junel Fe 1 mg-20 Mcg Tablet] 1 each PO HS FLUoxetine HCL [PROzac] 20 mg PO HS Omeprazole [PriLOSEC] 40 mg PO HS Discharge Medication List Cetirizine HCl [Zyrtec] 10 mg PO HS 03/18/17 [History] Norethindrone-E.estradiol-Iron [Junel Fe 1 mg-20 Mcg Tablet] 1 each PO HS 08/23/19 [History] FLUoxetine HCL [PROzac] 20 mg PO HS 12/21/19 [History] Omeprazole [PriLOSEC] 40 mg PO HS 04/11/20 [History] Acetaminophen Oral Susp [Tylenol Oral Susp] 1,000 mg PO Q4-6H PRN #400 ml 04/24/20 [Rx] Omeprazole [PriLOSEC] 40 mg PO DAILY #30 capsule. 04/24/20 [Rx] Ondansetron Odt [Zofran Odt] 4 mg PO Q8HR PRN #9 tab 04/24/20 [Rx] Simethicone 40 mg/0.6 ml Drops [Mylicon Drops] 40 mg PO PCHS PRN #30 ml 04/24/20 [Rx] bisacodyL [Dulcolax] 5 mg PO DAILY PRN #10 tablet. 04/24/20 [Rx] [facility]ment[facility]Ref[facility] [place] [place] [facility] [place] [facility]/27[facility]20 9:00 am Patient Instructions/Handouts: *Surgery [facility] - Scopalamine Patch Instructions, Nutrition after Bariatric Surgery (DC), Laparoscopic Sleeve Gastrectomy (GEN) Activity/Diet/Wound Care/Special Instructions: Liquid diet only for 2 weeks until May 07 No lifting over 4 pounds in 4 weeks, May 24August Shower. No soaking in bath tubs for 2 weeks, until May 07 Please notify your surgeon if you develop nausea and vomiting including new onset of abdominal pain. Continue to use incentive spirometry to prevent pneumonias. Please continue to ambulate at home to prevent blood clots in legs. Follow-up at the bariatric center. Drink 64 oz of fluid daily. Start protein shakes on . Notify bariatric center for temp over 101.0, increased pain, drainage from incisions. No straws or carbonated beverages. Liquid diet only. Sugar content should be less than 6 g to avoid dumping syndrome. Take MOM for constipation. CRUSH, OPEN, OR CUT TABLETS LARGER THAN A SIZE OF A TIC TAC Discharge Disposition: HOME SELF-CARE
[2020-04-24 14:16] VITALS: PULSE 119; RESP 18
[2020-04-24] MEDS ORDERED: ceFAZolin 3 GM in SODIUM CHLORIDE 0.9% 100 ML IVPB SCH (16:00)
[2020-04-25] MEDS ORDERED: bisacodyL 5 MG TABLET.DR PO PRN (08:00)
== END 2020-04-24 16:55 | disposition home or self-care (01) | DRG 621 ==
LOC: 2ORMAIN 08:10 → 4SSUR 10:36
PROVIDERS: ADMIT Surgery Plastic and Reconstructive Surgery; ATTEND Surgery Plastic and Reconstructive Surgery
PROC: 0DJ08ZZ Inspection of Upper Intestinal Tract, Via Natural or Artificial Opening Endoscopic (ICD-10-PCS; 2020-04-23)
PROC: 0DB64Z3 Excision of Stomach, Percutaneous Endoscopic Approach, Vertical (ICD-10-PCS; principal; 2020-04-23 09:25)
DX: E66.01 Morbid (severe) obesity due to excess calories (principal); D27.1 Benign neoplasm of left ovary; E86.0 Dehydration; F12.90 Cannabis use, unspecified, uncomplicated; F32.9 Major depressive disorder, single episode, unspecified; I11.9 Hypertensive heart disease without heart failure; K21.9 Gastro-esophageal reflux disease without esophagitis; M16.0 Bilateral primary osteoarthritis of hip; M17.0 Bilateral primary osteoarthritis of knee; R00.0 Tachycardia, unspecified; M47.9 Spondylosis, unspecified; Z68.43 Body mass index [BMI] 50.0-59.9, adult; Z90.49 Acquired absence of other specified parts of digestive tract; Z98.890 Other specified postprocedural states; Z79.899 Other long term (current) drug therapy; Z88.2 Allergy status to sulfonamides; Z88.1 Allergy status to other antibiotic agents; Z91.040 Latex allergy status
CPT/HCPCS: 74240; 80051; 81025; 82310; 82565; 83735; 84100; 84520; 85025; 86850; 86900; 86901; 88307; 94640; 94760; 94762

== ENCOUNTER → 2020-04-27 | Outpatient (CLI) | payer BC ==
[2020-04-27 11:02] VITALS: BP 137/71; PULSE 86; TEMP 98.2; BMI 53.7
--- NOTE | 2020-04-27 14:08 | P.PN ---
Subjective Progress Note Date: 04/27/20 DATE OF SERVICE: 04/27/20 CHIEF COMPLAINT: Status post sleeve gastrectomy HISTORY OF PRESENT ILLNESS: Teena Varela is a 25-year-old female status post sleeve gastrectomy, 04/23/20. She is 4 days out. She reports intolerance to liquid Tylenol regarding the taste. She is tolerating liquids. Her pain is controlled. She denies fevers or chills. At height of 5 feet 5 inches, her ideal body weight is 149 pounds. Her highest weight was 336 pounds, BMI 56.1. She comes in 322 pounds from 336 pounds, 3 months ago. She has lost 14 pounds in 3 months. Lifetime weight loss of 14 pounds. Percent excess weight loss of 7 %. She is 173 pounds overweight. REVIEW OF ORGAN SYSTEMS: No fevers or chills. No dysphagia. PHYSICAL EXAM: VITAL SIGNS: Height 5 foot 5 inches, weight 322 pounds. BMI 53.7 Vital Signs Temp 98.2 F 04/27/20 10:59 Pulse 86 04/27/20 10:59 Resp BP 137/71 04/27/20 10:59 Pulse Ox GENERAL: Well-developed in no acute distress. HEENT: No scleral icterus. Extraocular movements grossly intact. Hears conversational speech. No nasal drainage. NECK: Supple without lymphadenopathy. CHEST: Nonlabored respirations with equal bilateral excursions. CARDIOVASCULAR: Regular rate and rhythm. Distal 2+ pulses. ABDOMEN: Dressing removed. Incision intact without infection. MUSCULOSKELETAL: No clubbing, cyanosis. NEURO: No focal or lateralizing signs. Cranial nerves 2 through 12 grossly within normal limits. PSYCH: Appropriate affect. Alert and oriented to person, place and time. SKIN: Good skin turgor. Well perfused. ASSESSMENT: 1. Morbid obesity due to excess calories 2. Body mass index of 56.1 to 53.7 3. Osteoarthritis of the knees. 4. Osteoarthritis of the lower back. 5. Gastroesophageal reflux disease 6. Depressive disorder 7. Left ovarian teratoma 8. Status post sleeve gastrectomy. PLAN: 1. Follow up in 1 week with advancement to protein shakes. Objective - Vital Signs Vital signs: Vital Signs Temp 98.2 F 04/27/20 10:59 Pulse 86 04/27/20 10:59 Resp BP 137/71 04/27/20 10:59 Pulse Ox Intake & Output 04/26/20 04/27/20 04/27/20 18:59 06:59 18:59 Weight 146.51 kg
== END | disposition home or self-care (01) ==
LOC: BARWHC3 09:43
PROVIDERS: ATTEND Surgery Plastic and Reconstructive Surgery
DX: Z48.815 Encounter for surgical aftercare following surgery on the digestive system (principal); E66.01 Morbid (severe) obesity due to excess calories; K21.9 Gastro-esophageal reflux disease without esophagitis; M47.816 Spondylosis without myelopathy or radiculopathy, lumbar region; F32.9 Major depressive disorder, single episode, unspecified; D27.1 Benign neoplasm of left ovary; Z98.84 Bariatric surgery status; Z68.43 Body mass index [BMI] 50.0-59.9, adult; M17.0 Bilateral primary osteoarthritis of knee
CPT/HCPCS: 99211

== ENCOUNTER → 2020-05-02 | Outpatient (CLI) | payer BC ==
[2020-05-02 14:21] VITALS: BP 133/79; PULSE 89; RESP 18; TEMP 98.2; BMI 51.9
--- NOTE | 2020-05-02 14:56 | P.PN ---
Subjective Progress Note Date: 05/02/20 DATE OF SERVICE: 05/02/20 CHIEF COMPLAINT: Status post sleeve gastrectomy HISTORY OF PRESENT ILLNESS: Teena Varela is a 25-year-old female status post sleeve gastrectomy, 04/23/20. She is 1 week out. Her pain is controlled. She is drinking moderate water. Her protein intake is less than 2 drinks per day or 60 grams daily. She denies moderate pain. Her incisions are without infection. She has lost 11 pounds in 1 week. At height of 5 feet 5 inches, her ideal body weight is 149 pounds. Her highest weight was 336 pounds, BMI 56.1. She comes in 311 pounds from 336 pounds, 3 months ago. She has lost 25 pounds in 3 months. Lifetime weight loss of 25 pounds. Percent excess weight loss of 13%. She is 162 pounds overweight. REVIEW OF ORGAN SYSTEMS: No fevers or chills. PHYSICAL EXAM: VITAL SIGNS: Height 5 foot 5 inches, weight 311 pounds. BMI 51.9 Vital Signs Temp 98.2 F 05/02/20 14:11 Pulse 89 05/02/20 14:11 Resp 18 05/02/20 14:11 BP 133/79 05/02/20 14:11 Pulse Ox GENERAL: Well-developed in no acute distress. HEENT: No scleral icterus. Extraocular movements grossly intact. Hears conversational speech. No nasal drainage. NECK: Supple without lymphadenopathy. CHEST: Nonlabored respirations with equal bilateral excursions. CARDIOVASCULAR: Tachycardic. Distal 2+ pulses. ABDOMEN: Incision intact without infection. Mild puckering of skin at left upper quadrant. MUSCULOSKELETAL: No clubbing, cyanosis. NEURO: No focal or lateralizing signs. Cranial nerves 2 through 12 grossly within normal limits. PSYCH: Appropriate affect. Alert and oriented to person, place and time. SKIN: Good skin turgor. Well perfused. ASSESSMENT: 1. Morbid obesity due to excess calories 2. Body mass index of 56.1 to 51.9 3. Osteoarthritis of the knees. 4. Osteoarthritis of the lower back. 5. Gastroesophageal reflux disease 6. Depressive disorder 7. Left ovarian teratoma 8. Status post sleeve gastrectomy. PLAN: 1. Recommend increase protein intake over 75 grams daily. 2. Continue fluid intake over 64 ounces daily Objective - Vital Signs Vital signs: Vital Signs Temp 98.2 F 05/02/20 14:11 Pulse 89 05/02/20 14:11 Resp 18 05/02/20 14:11 BP 133/79 05/02/20 14:11 Pulse Ox Intake & Output 05/01/20 05/02/20 05/02/20 18:59 06:59 18:59 Weight 141.521 kg
== END | disposition home or self-care (01) ==
LOC: BARWHC3 13:21
PROVIDERS: ATTEND Surgery Plastic and Reconstructive Surgery
DX: Z48.815 Encounter for surgical aftercare following surgery on the digestive system (principal); E66.01 Morbid (severe) obesity due to excess calories; Z68.43 Body mass index [BMI] 50.0-59.9, adult; M17.0 Bilateral primary osteoarthritis of knee; K21.9 Gastro-esophageal reflux disease without esophagitis; F32.9 Major depressive disorder, single episode, unspecified; D27.1 Benign neoplasm of left ovary; Z98.84 Bariatric surgery status
CPT/HCPCS: 97803; 99211

== ENCOUNTER → 2020-05-30 | Outpatient (CLI) | payer BC ==
[2020-05-30 14:20] VITALS: BP 107/60; PULSE 57; RESP 18; TEMP 98.4; BMI 50.4
--- NOTE | 2020-05-30 14:54 | P.PN ---
Subjective Progress Note Date: 05/30/20 DATE OF SERVICE: 05/30/20 CHIEF COMPLAINT: Status post sleeve gastrectomy HISTORY OF PRESENT ILLNESS: Teena Varela is a 25-year-old female status post sleeve gastrectomy, 04/23/20. She is over 1 month out. She has lost 25 pounds. She comes in with unusual menstrual bleeding. She has seen her gyne cologist. She denies heartburn. Her clothes are getting bigger for her. At height of 5 feet 5 inches, her ideal body weight is 149 pounds. Her highest weight was 336 pounds, BMI 56.1. She comes in 302 pounds from 311 pounds, 1 month ago. She has lost 9 pounds in 1 month. Lifetime weight loss of 34 pounds. Percent excess weight loss of 18%. She is 153 pounds overweight. PHYSICAL EXAM: VITAL SIGNS: Height 5 foot 5 inches, weight 302 pounds. BMI 50.4 Vital Signs Temp 98.4 F 05/30/20 14:16 Pulse 57 L 05/30/20 14:16 Resp 18 05/30/20 14:16 BP 107/60 05/30/20 14:16 Pulse Ox GENERAL: Well-developed in no acute distress. HEENT: No scleral icterus. Extraocular movements grossly intact. Hears conversational speech. No nasal drainage. NECK: Supple without lymphadenopathy. CHEST: Nonlabored respirations with equal bilateral excursions. CARDIOVASCULAR: Regular, rate and rhythm. Distal 2+ pulses. ABDOMEN: Incisions granulated. Soft, nontender MUSCULOSKELETAL: No clubbing, cyanosis. NEURO: No focal or lateralizing signs. Cranial nerves 2 through 12 grossly within normal limits. PSYCH: Appropriate affect. Alert and oriented to person, place and time. SKIN: Good skin turgor. Well perfused. ASSESSMENT: 1. Morbid obesity due to excess calories 2. Body mass index of 56.1 to 50.4 3. Osteoarthritis of the knees. 4. Osteoarthritis of the lower back. 5. Gastroesophageal reflux disease 6. Depressive disorder 7. Left ovarian teratoma 8. Status post sleeve gastrectomy. PLAN: 1. Recommend bariatric labs. 2. Follow up with her food service ambassador. Objective - Vital Signs Vital signs: Vital Signs Temp 98.4 F 05/30/20 14:16 Pulse 57 L 05/30/20 14:16 Resp 18 05/30/20 14:16 BP 107/60 05/30/20 14:16 Pulse Ox Intake & Output 05/29/20 05/30/20 05/30/20 18:59 06:59 18:59 Weight 137.438 kg
== END | disposition home or self-care (01) ==
LOC: BARWHC3 13:25
PROVIDERS: ATTEND Surgery Plastic and Reconstructive Surgery
DX: E66.01 Morbid (severe) obesity due to excess calories (principal); Z68.43 Body mass index [BMI] 50.0-59.9, adult; M17.0 Bilateral primary osteoarthritis of knee; M47.9 Spondylosis, unspecified; K21.9 Gastro-esophageal reflux disease without esophagitis; F32.9 Major depressive disorder, single episode, unspecified; D27.1 Benign neoplasm of left ovary; Z98.84 Bariatric surgery status
CPT/HCPCS: 97803; 99211

== ENCOUNTER → 2020-08-15 | Outpatient (CLI) | payer BC ==
[2020-08-15 13:34] LABS: HCT 36.9 % (34.0-46.0); HGB 12.1 gm/dL (11.4-16.0); MCHC 32.9 g/dL (31.0-37.0); Mean Platelet Volume 7.6; Platelet Count 259 k/uL (150-450); RBC 4.67 m/uL (3.80-5.40); RDW 14.3 % (11.5-15.5); WBC 9.3 k/uL (3.8-10.6)
[2020-08-15 13:45] LABS: Partial Thromboplastin Time 23.7 sec (22.0-30.0); Prothrombin Time 10.3 sec (9.0-12.0)
[2020-08-15 14:40] VITALS: BP 120/80; PULSE 75; RESP 18; TEMP 97.4; BMI 44.2
--- NOTE | 2020-08-15 15:03 | P.PN ---
Subjective Progress Note Date: 08/15/20 DATE OF SERVICE: 08/15/20 CHIEF COMPLAINT: Status post sleeve gastrectomy HISTORY OF PRESENT ILLNESS: Teena Varela is a 25-year-old female status post sleeve gastrectomy, 04/23/20. She is over 4 months out. She comes in with moderate weight loss. She has family history of morbid obesity. She has denies abdominal pain. Her protein intake is doing well at over 75 grams daily. She is seeing a residential construction instructor for a teratoma of the ovary. She denies moderate gastroesophageal reflux disease. She takes antacid as needed for acidic foods. At height of 5 feet 5 inches, her ideal body weight is 149 pounds. Her highest weight was 336 pounds, BMI 56.1. She comes in 265 pounds from 302 pounds, 3 months ago. She has lost 37 pounds in 3 months. Lifetime weight loss of 71 pounds. Percent excess weight loss of 38%. She is 116 pounds overweight. PAST MEDICAL HISTORY: 1. Morbid obesity due to excess calories 2. Body mass index of 56.1 3. Osteoarthritis of the knees. 4. Osteoarthritis of the lower back. 5. Gastroesophageal reflux disease 6. Depressive disorder 7. Ovarian teratoma PAST SURGICAL HISTORY: 1. Cholecystectomy 2. Tonsillectomy 3. Colonoscopy 4. EGD 5. Sleeve gastrectomy HOME MEDICATIONS: Home Medications Medication Instructions Recorded Confirmed Cetirizine HCl [Zyrtec] 10 mg PO HS 03/18/17 01/25/20 Norethindrone-E.estradiol-Iron 1 each PO HS 08/23/19 01/25/20 [Junel Fe 1 mg-20 Mcg Tablet] FLUoxetine HCL [PROzac] 20 mg PO DAILY 12/21/19 01/25/20 Previous Rx's Medication Instructions Recorded Omeprazole [PriLOSEC] 40 mg PO DAILY #90 cap 10/18/19 ALLERGIES: Allergies Allergy/AdvReac Type Severity Reaction Status Date / Time clindamycin Allergy Rash/Hives Verified 01/25/20 13:35 latex Allergy Itching, Verified 01/25/20 13:35 rash Penicillins Allergy Rash/Hives Verified 01/25/20 13:35 Sulfa (Sulfonamide Allergy Rash/Hives, Verified 01/25/20 13:35 Antibiotics) swelling SOCIAL HISTORY: Marijuana use. FAMILY HISTORY: No family history of ulcerative colitis disease or Crohn's disease. Family history of morbid obesity. History of Factor 2 gene mutation. REVIEW OF ORGAN SYSTEMS: CONSTITUTIONAL: At height of 5 feet 5 inches, her ideal body weight is 149 pounds. She comes in 336 pounds. Her body mass index is 56.1. She is 187 pounds overweight. HEENT: Denies any active troubles hearing. Wears glasses. ENDOCRINE: No diabetes. No hypothyroidism. CARDIOVASCULAR: No past reports heart attacks or chest pain. RESPIRATORY: No daytime somnolence. No asthma. GASTROINTESTINAL: Denies any bright red blood per rectum. Has diarrhea. No constipation. MUSCULOSKELETAL: Has lower back pain and joint pain. Has osteoarthritis of the knees. NEURO: No headaches. No seizure disorders. PSYCH: Has depression. No suicidal ideation. RHEUMATOLOGIC: No lupus. No rheumatoid arthritis. HEMATOLOGIC: Denies any abnormal bleeding or bruising. No personal history of DVTs. SKIN: No rash. No skin cancer. GENITOURINARY: Has left ovarian mass. PHYSICAL EXAM: VITAL SIGNS: Height 5 foot 5 inches, weight 265 pounds. BMI 44.3 Vital Signs Temp 97.4 F L 08/15/20 14:34 Pulse 75 08/15/20 14:34 Resp 18 08/15/20 14:34 BP 120/80 08/15/20 14:34 Pulse Ox GENERAL: Well-developed in no acute distress. HEENT: No scleral icterus. Extraocular movements grossly intact. Hears conversational speech. No nasal drainage. NECK: Supple without lymphadenopathy. CHEST: Nonlabored respirations with equal bilateral excursions. CARDIOVASCULAR: Regular, rate and rhythm. Distal 2+ pulses. ABDOMEN: Soft, nontender. No incisional hernias from bariatric sites. MUSCULOSKELETAL: No clubbing, cyanosis. NEURO: No focal or lateralizing signs. Cranial nerves 2 through 12 grossly within normal limits. PSYCH: Appropriate affect. Alert and oriented to person, place and time. SKIN: Good skin turgor. Well perfused. LABS: Reviewed. Iron is low. Triglycerides is elevated. Copper is elevated. Zinc is low. ASSESSMENT: 1. Morbid obesity due to excess calories 2. Body mass index of 56.1 to 44.3 3. Osteoarthritis of the knees. 4. Osteoarthritis of the lower back. 5. Gastroesophageal reflux disease 6. Depressive disorder 7. Left ovarian teratoma 8. Status post sleeve gastrectomy. 9. Zinc deficiency 10. Copper excess PLAN: 1. Recommend bariatric labs as she is over 3 months out 2. Continue protein intake over 75 grams daily. 3. Zinc 50 mg daily 4. Sources of copper excess advised. 5. Recommend iron infusion for iron deficiency anemia. Objective - Vital Signs Vital signs: Vital Signs Temp 97.4 F L 08/15/20 14:34 Pulse 75 08/15/20 14:34 Resp 18 08/15/20 14:34 BP 120/80 08/15/20 14:34 Pulse Ox Intake & Output 08/14/20 08/15/20 08/15/20 18:59 06:59 18:59 Weight 120.656 kg - Labs CBC & Chem 7: 08/15/20 13:09 08/15/20 13:09 Labs: Abnormal Lab Results - Last 24 Hours (Table) 08/15/20 Range/Units 13:09 MCV 79.0 L (80.0-100.0) fL
[2020-08-15 22:21] LABS: Hemoglobin A1C 5.2 % (4.0-6.0)
[2020-08-15 22:47] LABS: % Iron Saturation 8.45 (12.00-45.00); African American GFR (CKD) 148.9 (60.0-200.0); Albumin 4.6 g/dL (3.80-4.90); Anion Gap 9.1 mmol/L (4.00-12.00); BUN/Creat Ratio 23.33 Ratio (12.00-20.00); Calcium 9.5 mg/dL (8.7-10.3); Carbon Dioxide 24.9 mmol/L (21.6-31.8); Chol/HDL Ratio 6.74; Globulin 2.3 g/dL (1.6-3.3); Magnesium 1.8 mg/dL (1.5-2.4); Non-African American GFR(CKD) 128.5 (60.0-200.0); Phosphorus 4.4 mg/dL (2.4-5.1); Potassium 4.2 mmol/L (3.5-5.5); Total Bilirubin 0.3 mg/dL (0.3-1.2); Total Protein 6.9 g/dL (6.2-8.2)
[2020-08-15 22:57] LABS: Ferritin 32.1 ng/mL (10.0-291.0)
[2020-08-16 14:09] LABS: Zinc, Serum 58 ug/dL (60-130)
[2020-08-17 09:36] LABS: Vitamin A 52 ug/dL (38-106)
[2020-08-17 14:04] LABS: Vit B1(Thiamine) 85 ug/L (38-122)
[2020-08-19 19:02] LABS: Selenium 129 mcg/L (63-160)
== END ==
LOC: BARWHC3 12:38
PROVIDERS: ATTEND Surgery Plastic and Reconstructive Surgery
DX: E66.01 Morbid (severe) obesity due to excess calories (principal); M17.0 Bilateral primary osteoarthritis of knee; M47.9 Spondylosis, unspecified; F32.9 Major depressive disorder, single episode, unspecified; K21.9 Gastro-esophageal reflux disease without esophagitis; D27.1 Benign neoplasm of left ovary; E60 Dietary zinc deficiency; E83.00 Disorder of copper metabolism, unspecified; Z68.41 Body mass index [BMI] 40.0-44.9, adult; Z98.84 Bariatric surgery status; Z88.0 Allergy status to penicillin; Z88.2 Allergy status to sulfonamides; Z91.040 Latex allergy status; Z88.1 Allergy status to other antibiotic agents
CPT/HCPCS: 36415; 80053; 80061; 82306; 82525; 82607; 82728; 82746; 83036; 83540; 83550; 83735; 83970; 84100; 84134; 84255; 84425; 84443; 84590; 84630; 85027; 85610; 85730; 97803; 99211

== ENCOUNTER → 2021-11-13 | Outpatient (CLI) | payer BC ==
[2021-11-13 16:36] VITALS: BP 125/77; PULSE 69; TEMP 98.3; BMI 28.4
--- NOTE | 2021-11-13 17:27 | P.BASOAP ---
Subjective Progress Note Date: 11/13/21 She is in [place]. Lost 175 pounds. She lost weight with the sleeve. No belly pain. She reports skin problem. She is looking into skin removal. She has panniculitis. Covered benefit. Objective - Vital Signs Vital signs: Vital Signs Temp 98.3 F 11/13/21 16:24 Pulse 69 11/13/21 16:24 Resp BP 125/77 11/13/21 16:24 Pulse Ox FiO2 Intake & Output 11/12/21 11/13/21 11/13/21 18:59 06:59 18:59 Weight 77.564 kg Assessment/Plan Plan: Date: 11/13/21 Initial Weight: Initial BMI: Current Weight: 77.564 kg Current BMI: 28.4 Type of Surgery: Total Volume in Band: Previous Volume: Volume Removed: Volume Added: Band Size:
== END | disposition home or self-care (01) ==
LOC: BARWHC3 16:13
PROVIDERS: ATTEND Surgery Plastic and Reconstructive Surgery
DX: E66.01 Morbid (severe) obesity due to excess calories (principal); M79.3 Panniculitis, unspecified; Z68.28 Body mass index [BMI] 28.0-28.9, adult
CPT/HCPCS: 99211

== ENCOUNTER → 2021-11-14 | Outpatient (CLI) | payer BC ==
[2021-11-14 12:46] LABS: Partial Thromboplastin Time 26.3 sec (22.0-30.0); Prothrombin Time 10.5 sec (9.0-12.0)
[2021-11-14 18:44] LABS: HCT 38.1 % (37.2-46.3); HGB 12.1 g/dL (12.0-15.0); MCH 27.7 pg (27.0-32.0); MCHC 31.8 g/dL (32.0-37.0); MCV 87.2 fL (80.0-97.0); Mean Platelet Volume 10.9 fL (9.5-12.2); NRBC Per 100 WBC 0 /100 WBCS (0.0-0.0); Platelet Count 234 X 10*3/uL (140-440); RBC 4.37 X 10*6/uL (4.10-5.20); RDW 14.6 % (11.5-14.5); WBC 8.25 X 10*3/uL (4.50-10.00)
[2021-11-14 19:21] LABS: Iron 38 ug/dL (50-170)
[2021-11-14 19:22] LABS: % Iron Saturation 9.04 (12.00-45.00); ALT 10 U/L (8-44); AST 17 U/L (13-35); African American GFR (CKD) 140.6 (60.0-200.0); Albumin 4.4 g/dL (3.8-4.9); Albumin/Globulin Ratio 1.69 (1.60-3.17); Alkaline Phosphatase 79 U/L (41-126); BUN/Creat Ratio 19.14 Ratio (12.00-20.00); Blood Urea Nitrogen 13.4 mg/dL (9.0-27.0); Calcium 9.5 mg/dL (8.7-10.3); Chloride 104 mmol/L (96-109); Ferritin 35.3 ng/mL (10.0-291.0); Globulin 2.6 g/dL (1.6-3.3); Glucose 78 mg/dL (70-110); Non-African American GFR(CKD) 121.3 (60.0-200.0); Phosphorus 4.3 mg/dL (2.4-5.1); Potassium 4.3 mmol/L (3.5-5.5); Sodium 143 mmol/L (135-145); Total Iron Binding Capacity 416 ug/dL (228-460)
[2021-11-14 19:32] LABS: Chol/HDL Ratio 3.51 Ratio; LDL Cholesterol,Calculated 131.6 mg/dL (0.0-131.0); VLDL Calculation 12.82 mg/dL (5.00-40.00)
[2021-11-15 12:58] LABS: Zinc, Serum 75 ug/dL (60-130)
== END | disposition home or self-care (01) ==
LOC: LABWHC1 12:12
PROVIDERS: ATTEND Surgery Plastic and Reconstructive Surgery
DX: E66.01 Morbid (severe) obesity due to excess calories (principal); E89.1 Postprocedural hypoinsulinemia; D50.8 Other iron deficiency anemias; E44.0 Moderate protein-calorie malnutrition; E44.1 Mild protein-calorie malnutrition; E45 Retarded development following protein-calorie malnutrition; E46 Unspecified protein-calorie malnutrition; E55.9 Vitamin D deficiency, unspecified; K74.1 Hepatic sclerosis; N19 Unspecified kidney failure; T56.894A Toxic effect of other metals, undetermined, initial encounter; K50.90 Crohn's disease, unspecified, without complications
CPT/HCPCS: 36415; 80053; 80061; 82306; 82525; 82607; 82728; 82746; 83036; 83540; 83550; 83735; 83970; 84100; 84134; 84255; 84425; 84443; 84590; 84630; 85027; 85610; 85730